=== PATIENT | female | born 1965 | race Caucasian/White ===

== ENCOUNTER 2020-02-12 23:06 | Observation (INO) | payer OTHER, SELFPAY ==
--- NOTE | ~2020-02-12 | XR_ITS ---
EXAMINATION: XR chest 2V DATE: 02/12/2020 23:56 INDICATION: Syncope TECHNIQUE: PA and lateral views of the chest were obtained. COMPARISON: Chest radiograph dated 05/27/2019 FINDINGS: The lungs remain clear with no focal airspace opacities, pulmonary edema, pleural effusion or pneumot horax. The cardiomediastinal silhouette is normal. Mild thoracic spondylosis. IMPRESSION: 1. No acute cardiopulmonary disease. Reviewed, dictated and finalized at location A.
--- NOTE | ~2020-02-12 | CT_ITS ---
EXAMINATION: CT BRAIN W/O DATE: 02/12/2020 23:57 INDICATION: Incomplete. TECHNIQUE: Computed tomography (CT) of the head was performed without intravenous contrast. The dose- length product was 605.33 mGy-cm. The mA was adjusted according to patient size. Iterative reconstruc tion technique was employed. COMPARISON: CT dated 05/27/2019 FINDINGS: Normal brain parenchymal volume for age. Normal reyes-white differentiation. No acute intrac ranial hemorrhage, infarction, mass or mass effect. There are scattered mild periventricular and subc ortical white matter changes, most likely related to small vessel ischemic disease (microangiopathy). No ventriculomegaly or midline shift. Midline sagittal images demonstrate a normal corpus callosum, c raniovertebral junction and sella turcica. Basilar cisterns are patent. Paranasal sinuses and mastoids are pneumatized. No depressed skull fractures. IMPRESSION: 1. No acute intracranial abnormality. Reviewed, dictated and finalized at location A.
--- NOTE | 2020-02-12 23:11 | ECG_ITS ---
Measurements Intervals [place] Rate: 95 P: 74 IN: 197 QRS: 83 QRSD: 99 T: 69 QT: 377 QTc: 475 Interpretive Statements SINUS RHYTHM BASELINE ARTIFACT- II, III, AVL, AVF NORMAL ECG Electronically Signed On 02-13-2020 7:17:50 CDT by Todd Ferguson D.O.
--- NOTE | 2020-02-12 23:13 | ED.SYNCOPE ---
HPI - Syncope General Chief Complaint: Syncope Stated Complaint: Syncope, Hypertension Time Seen by Provider: 02/12/20 23:13 Source: patient Mode of arrival: EMS Limitations: no limitations History of Present Illness HPI narrative: 54-year-old woman brought to the emergency department this evening After passing out at home. She states that she had a coughing spell prior to passing out. 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 Cough is nonproductive. Patient states that she had no premonitory symptoms such as lightheadedness, chest pain, nausea, shortness of breath, visual changes, or headache. She states the loss of consciousness was brief and unwitnessed. She denies any recent weakness, shortness of breath, calf pain, chest pain, weakness, lightheadedness or shortness of breath. She states she briefly felt lightheaded while going out to the ambulance. BS was 98 at the scene. She had 4 alcoholic drinks today. MD complaint: loss of consciousness Onset (ago): hour(s) (1) -: minutes(s) Prodromal symptoms: none Witnessed: No Injuries sustained associated with event: none Current symptoms: none History: history of CAD Treatments prior to arrival: none Related Data Home Medications Medication Instructions Recorded Confirmed hydrochlorothiazide 12.5 mg PO DAILY 02/12/20 02/12/20 irbesartan 75 mg PO DAILY 02/12/20 02/12/20 metoprolol succinate 25 mg PO DAILY 02/12/20 02/12/20 Allergies Allergy/AdvReac Type Severity Reaction Status Date / Time hydrocodone Allergy Severe Verified 12/20/08 13:01 Penicillins Allergy Severe Verified 12/20/08 13:01 CODEINE (Generic Allergy) Allergy Severe Y Uncoded 02/28/03 14:33 1. CODIENE 2.PCN 3. BITH Allergy Unknown Uncoded 02/28/03 13:42 CONTROLL PILLS NKFA Allergy Unknown Uncoded 02/28/03 13:42 CONTRCEPTIVES Allergy Uncoded 12/20/08 13:01 Review of Systems Constitutional: Constitutional: Denies chills, Denies fatigue, Denies fever(s) and Denies weakness Eyes: Eyes: Denies change in vision and Denies photophobia ENT: Denies dysphagia, Denies nasal congestion and Denies sore throat Cardiovascular: Cardiovascular: Denies chest pain and Denies radiating jaw, neck or arm pain Respiratory: Respiratory: Denies cough, Denies dyspnea and Denies wheezing Gastrointestinal: Gastrointestinal: Denies abdominal pain, Denies diarrhea, Denies nausea and Denies vomiting Genitourinary: Genitourinary: Denies nocturia, Denies dysuria and Denies urinary incontinence Musculoskeletal: Musculoskeletal: Denies back pain, Denies arthralgias and Denies joint swelling Integumentary/Breasts: Skin/Breast: Denies pruritus, Denies erythema and Denies rash Neurologic: Reports as per HPI, Denies confusion, Denies vertigo, Denies dizziness, Denies headache(s), Denies focal weakness, Denies numbness and Denies weakness Psychiatric: Psychiatric: Denies anxiety and Denies depression Endocrine: Endocrine: Denies polydipsia and Denies polyuria Hematologic/Lymphatic: Hematologic/Lymphatic: Denies easy bleeding and Denies easy bruising Allergic/Immunologic: Allergic/Immunologic: Denies lip swelling and Denies wheezing PMFSH Past Medical History Medical History History of [place] (myocardial infarction) History of TIA (transient ischemic attack) Hypertension Surgical History Surgical History H/O: hysterectomy History of Social History Social History Smoking status: Current every day smoker Alcohol intake: current Substance use: never Living arrangements: with family Exam Const: General: healthy appearing, no acute distress and alert Nutritional Appearance: thin Orientation/consciousness: patient oriented x3 Limitations: no limitations
[2020-02-12 23:15] VITALS: BP 174/107; PULSE 82; RESP 20; TEMP 36.4; O2SAT 97
[2020-02-12 23:50] VITALS: BP 141/91; PULSE 96
[2020-02-12 23:50] LABS: Basophils Absolute Auto 0.07 K/mm3 (0.00-0.10); Basophils Percent Auto 0.7 % (0.0-1.0); Eosinophils Absolute Auto 0.17 K/mm3 (0.02-0.50); Eosinophils Percent Auto 1.7 % (1.0-6.0); Hematocrit 47.3 % (35.0-49.0); Hemoglobin 16.5 g/dL (12.0-15.0); Immature Granulocyte Absolute 0.02 K/mm3 (0.00-0.00); Immature Granulocyte Percent A 0.2 % (0.0-0.0); Lymphocytes Absolute Auto 2.47 K/mm3 (1.10-4.50); Lymphocytes Percent Auto 24.3 % (18.0-42.0); Mean Corpuscular HGB Conc 34.9 g/dL (32.0-36.0); Mean Corpuscular Hemoglobin 33.3 pg (27.0-31.0); Mean Corpuscular Volume 95.4 fL (78.0-102.0); Mean Platelet Volume 9.6 fl (9.2-11.8); Monocytes Absolute Auto 0.86 K/mm3 (0.10-0.90); Monocytes Percent Auto 8.5 % (2.0-11.0); Neutrophils Absolute Auto 6.6 K/mm3 (1.7-7.2); Neutrophils Percent Auto 64.6 % (50.0-70.0); Platelet Count Result 230 K/mm3 (150-420); Red Blood Count 4.96 M/mm3 (4.20-5.40); Red Cell Distribution Width 12.8 % (11.6-14.4); White Blood Count 10.2 K/mm3 (4.8-10.8)
[2020-02-12 23:52] VITALS: BP 127/88; PULSE 99
[2020-02-12 23:53] VITALS: PULSE 100
[2020-02-12 23:59] LABS: Partial Thromboplastin Time 25.3 SEC (22.3-31.6); Prothrombin Time 10.2 Seconds (9.64-11.0)
[2020-02-13] VITALS (7 sets, daily range): BP systolic 130–162; BP diastolic 62–93; PULSE 89–95; RESP 18; TEMP 36.2–36.6; O2SAT 97–99; BMI 17.5
[2020-02-13 00:01] LABS: D Dimer 0.31 mg/L (0.19-0.50)
[2020-02-13 00:05] LABS: Alanine Aminotransferase 25 U/L (14-59); Alkaline Phosphatase 112 U/L (46-116); Anion Gap 15.3 mmol/L (7-16); Aspartate Amino Transferase 22 U/L (15-37); Bilirubin,Total 0.2 mg/dL (0.00-1.00); Blood Urea Nitrogen 11 mg/dL (7-18); Calcium 9.2 mg/dL (8.5-10.1); Carbon Dioxide 28 mmol/L (21-32); Chloride 99 mmol/L (98-108); Estimated CRCL calculation 69 ml/min; Estimated Glomerular Filt Rate > 60; Glucose 113 mg/dL (70-99); Osmolality Calculated 288 mOsm/kg (285-295); Potassium 3.3 mmol/L (3.5-5.1); Sodium 139 mmol/L (136-145); Total Protein 8.5 g/dL (6.4-8.2); Troponin I < 0.02 ng/mL (0.00-0.056)
[2020-02-13 00:16] LABS: Add Urine Microscopic? YES; Appearance Urine Clear (Clear); Bilirubin Urine Negative (Negative); Blood Urine 2+ (Negative); Glucose Urine UA Negative (Negative); Ketones Urine Negative (Negative); Leukocyte Esterase Ur Negative (Negative); Nitrate Urine Negative (Negative); Protein Urine Negative (Negative); Specific Grav Ur <= 1.005 (1.010-1.020); Urobilinogen Urine 0.2 mg/dL (0.2-1.0)
[2020-02-13 00:20] LABS: Color Urine Colorless (Yellow); RBC Urine 0-2 /hpf (0-2); WBC Urine None seen /hpf (0-3)
[2020-02-13 00:21] LABS: Bacteria Urine None seen /hpf; Mucus Urine None seen /lpf; Squamous Epithelial Cell Urine None seen /hpf (Few)
[2020-02-13] MEDS: ASPIRIN 81 MG CHEWABLE TABLET 324 MG PO (00:50)
--- NOTE | 2020-02-13 01:10 | ADMGEN ---
This patient, Jewels Langley, was admitted to 2nd Floor Room 202-2. Patient oriented to hospital policies and general routines including ID bracelet, bed and alarms, visiting hours, pain management, procedures, bathroom and other care routines, personal items, smoking policy, room service/diet, and visiting hours. Valuables list includes cell phone with senior teradata developer, wallet with approx $150 in it along with a debit card, clothing and slippers. Information on how to activate the Rapid Response Team has been discussed. Patient are encouraged to report perceived risks to care and to ask questions if they do not understand what they are told or what they should do.
--- NOTE | 2020-02-13 02:05 | PC.NURSE ---
Patient appears to be sleeping by the rise and fall of her chest. Respirations even and unlabored. No distress noted. No signs of chest pain noted. Telemetry showing sinus rhythm. Call light in reach.
--- NOTE | 2020-02-13 04:05 | PC.NURSE ---
Patient awakened easily for VS. Respirations even and unlabored. Patient denies SOB/chest pain/other pain/complaints/needs @ this time. Telemetry continues to show sinus rhythm. Call light in reach.
--- NOTE | 2020-02-13 06:00 | PC.NURSE ---
Patient awakened slightly when nurse emptied trash and refilled water. Patient denies SOB/chest pain/other pain/complaints/needs @ this time. Denies dizziness/lightheadedness/unsteadiness when up to use bathroom. Telemetry continues showing sinus rhythm. Patient says she slept off and on. Call light in reach.
[2020-02-13 06:23] LABS: Basophils Absolute Auto 0.06 K/mm3 (0.00-0.10); Basophils Percent Auto 0.7 % (0.0-1.0); Eosinophils Absolute Auto 0.25 K/mm3 (0.02-0.50); Eosinophils Percent Auto 3.1 % (1.0-6.0); Hematocrit 44.7 % (35.0-49.0); Hemoglobin 15.4 g/dL (12.0-15.0); Immature Granulocyte Absolute 0.02 K/mm3 (0.00-0.00); Immature Granulocyte Percent A 0.2 % (0.0-0.0); Lymphocytes Absolute Auto 3.18 K/mm3 (1.10-4.50); Lymphocytes Percent Auto 39.1 % (18.0-42.0); Mean Corpuscular HGB Conc 34.5 g/dL (32.0-36.0); Mean Corpuscular Hemoglobin 32.8 pg (27.0-31.0); Mean Corpuscular Volume 95.1 fL (78.0-102.0); Mean Platelet Volume 9.7 fl (9.2-11.8); Monocytes Absolute Auto 0.71 K/mm3 (0.10-0.90); Monocytes Percent Auto 8.7 % (2.0-11.0); Neutrophils Absolute Auto 3.9 K/mm3 (1.7-7.2); Neutrophils Percent Auto 48.2 % (50.0-70.0); Platelet Count Result 217 K/mm3 (150-420); Red Cell Distribution Width 12.7 % (11.6-14.4); White Blood Count 8.1 K/mm3 (4.8-10.8)
[2020-02-13 06:43] LABS: Alanine Aminotransferase 22 U/L (14-59); Albumin Level 3.4 g/dL (3.4-5.0); Alkaline Phosphatase 103 U/L (46-116); Anion Gap 12.5 mmol/L (7-16); Aspartate Amino Transferase 19 U/L (15-37); Bilirubin,Total 0.3 mg/dL (0.00-1.00); Blood Urea Nitrogen 11 mg/dL (7-18); Calcium 8.8 mg/dL (8.5-10.1); Carbon Dioxide 30 mmol/L (21-32); Chloride 101 mmol/L (98-108); Estimated CRCL calculation 66 ml/min; Estimated Glomerular Filt Rate > 60; Glucose 100 mg/dL (70-99); Osmolality Calculated 289 mOsm/kg (285-295); Potassium 3.5 mmol/L (3.5-5.1); Sodium 140 mmol/L (136-145); Total Protein 7.2 g/dL (6.4-8.2)
[2020-02-13 06:46] LABS: Troponin I < 0.02 ng/mL (0.00-0.056)
--- NOTE | 2020-02-13 07:00 | PC.NURSE ---
Patient denies chest pain, pressure, dizziness.
--- NOTE | 2020-02-13 08:00 | PC.NURSE ---
Patient denies chest pain, pressure, dizziness.
[2020-02-13] MEDS: IRBESARTAN 150 MG TABLET 75 MG PO (08:11)
[2020-02-13] MEDS: hydroCHLOROthiazide 12.5 MG CAPSULE PO (08:11)
[2020-02-13] MEDS: METOPROLOL SUCCINATE EXT REL 25 MG TABCR PO (08:11)
--- NOTE | 2020-02-13 08:12 | PM.SD ---
Same Day Admit/Disch: HPI History of Present Illness Chief complaint: Syncope, Hypertension Narrative: Myra is a 54-year-old female that presented to the ED post syncopal episode, unwitnessed. She has a past medical history [place], TIA, hypertension. according to the patient she was at home cleaning and had coughing episode which she believes caused her to blackout. She later woke up on the floor, she is unsure of how long she was there. She does deny hitting her head, she apparently landed on carpet but she did hit her left foot, which has a discolorated bruise. When she woke up from the syncopal episode she noted that she informed her and son and EMS was called and she was transported here to our ED department. 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 before she had her syncope episode she did deny any lightheadedness, dizziness, shortness of breath, chest pain, numbness, or visual changes. vital signs are 144/62, 94, 18, 97.7, 97% on room air. patient labs are all within normal limits. while in ED as CT of the head was completed with a chest x-ray which were unremarkable, troponin negative x2 EKG sinus rhythm and D-dimer within normal limits. she is being admitted today for syncope episode possibly caused by vasovagal. [facility] Past Medical History Medical History History of [place] (myocardial infarction) History of TIA (transient ischemic attack) Hypertension Surgical History Surgical History H/O: hysterectomy History of Family History Family History (Updated 02/13/20 @ 02:07 by Marichuy Nolasco RN) Mother Lung cancer, primary, with metastasis from lung to other site Father Breast cancer metastasized to brain Sibling DM2 (diabetes mellitus, type 2) Social History Social History Smoking packs per day: 1 Smoking cigarettes per day: 20.0 Years smoked: 39 Smoking pack-years: 39.00 Smoking status: Current every day smoker Tobacco type: cigarettes Second hand tobacco smoke exposure: Yes Alcohol intake: current Drinks per week: 2 Substance use: never Living arrangements: with family Gender identity (if verbalized by the patient): Female Spiritual care concerns: No Same Day Admit/Disch: Med Pre-admit Medications Home Medications Medication Instructions Recorded Confirmed Type hydrochlorothiazide 12.5 mg PO DAILY #30 tablet 02/13/20 02/12/20 Rx irbesartan 75 mg PO DAILY #30 tablet 02/13/20 02/12/20 Rx metoprolol succinate 25 mg PO DAILY #30 tablet 02/13/20 02/12/20 Rx Exam Narrative: Exam Narrative: General: A well-developed, well-nourished male sitting up in bed no acute distress. HEENT: Normocephalic, atraumatic. PERRL, EOMI. Sclerae anicteric. Oral mucosa moist. Oropharynx clear. Neck: Supple. Respiratory: Lungs are clear to auscultation bilaterally. Cardiovascular: Regular rate and rhythm with S1-S2. Gastrointestinal: Abdomen is soft, nontender, and nondistended with positive bowel sounds. No organomegaly. Skin: Warm, dry, and slightly pale.. No rash or lesions on limited exam. Left foot discoloration bruise Extremities: No cyanosis, clubbing, or edema. Radial and pedal pulses intact. Neurological: Alert. Cranial nerves 2-12 are grossly intact. No gross focal deficits to casual conversation. Psychiatric: Pleasant and cooperative with normal mood and affect. Judgment and insight intact. DS: Summary Hospital Course Reason for hospitalization: syncope episode Time Spent with Patient Time attestation: Total time spent providing and/or coordinating discharge services: DS: Admitting Diagnosis Admitting Diagnosis Admitting Diagnosis: Syncope and collapse DS: Discharge Diagnosis Discharge
--- NOTE | 2020-02-13 09:00 | PC.NURSE ---
Patient denies chest pain, pressure, dizziness
--- NOTE | 2020-02-13 10:00 | PC.NURSE ---
Patient denies chest pain, pressure, dizziness
--- NOTE | 2020-02-13 10:34 | P.DS_ITS ---
DS: Discharge Diagnosis Discharge Diagnosis (1) Syncope: Qualifiers: Syncope type: unspecified Qualified Code(s): R55 - Syncope and collapse <Patriciouna RylieWILFREDO Olvera - Last Filed: 02/13/20 11:01> Code(s): R55 - Syncope and collapse <Narendra YoungbloodWILFREDO Olvera - Last Filed: 02/13/20 11:01> Status: Acute <Narendra RylieWILFREDO Olvera - Last Filed: 02/13/20 11:01> Assessment and Plan: * not believed to be cardiac related * possibly secondary to vasovagal due to uncontrolled cough * head CT and chest x-ray unremarkable * troponin negative x2 * D-dimer within normal limits * EKG sinus rhythm * patient placed on telemetry while here * orthostatics completed, no abnormal findings <Patriciouna RylieWILFREDO Olvera - Last Filed: 02/13/20 11:01> (2) Hypertension: Code(s): I10 - Essential (primary) hypertension <WILFREDO Back - Last Filed: 02/13/20 11:01> Status: Acute <Narendra RylieWILFREDO Olvera - Last Filed: 02/13/20 11:01> Assessment and Plan: * blood pressure slightly elevated * patient admits she had not been taking blood pressure medication at home , she needs a refill, will refill her medication * continue home medication <WILFREDO Back - Last Filed: 02/13/20 11:01> (3) Hypokalemia: Code(s): E87.6 - Hypokalemia <WILFREDO Back - Last Filed: 02/13/20 11:01> Status: Acute <WILFREDO Back - Last Filed: 02/13/20 11:01> Assessment and Plan: * on admission 3.3 currently 3.5 * supplements given <WILFREDO Back - Last Filed: 02/13/20 11:01> (4) History of [place] (myocardial infarction): Code(s): I25.2 - Old myocardial infarction <WILFREDO Back - Last Filed: 02/13/20 11:01> Status: Acute <Narendra Wang MANAGER MEATPatricia - Last Filed: 02/13/20 11:01> Assessment and Plan: not believed to be cardiac related * possibly secondary to vasovagal due to uncontrolled cough * head CT and chest x-ray unremarkable * troponin negative x2 * D-dimer within normal limits * EKG sinus rhythm * patient placed on telemetry while here * orthostatics completed, no abnormal findings <Narendra YoungbloodChente STEVAN WangPaulineManjeet - Last Filed: 02/13/20 11:01> DS: Summary Hospital Course Reason for hospitalization: syncope episode <Narendra Staci Wang WILFREDO - Last Filed: 02/13/20 11:01> Hospital Course: Myra is a 54-year-old female that presented to the ED post syncopal episode, unwitnessed. She has a past medical history [place], TIA, hypertension. according to the patient she was at home cleaning and had coughing episode which she believes caused her to blackout. She later woke up on the floor, she is unsure of how long she was there. She does deny hitting her head, she apparently landed on carpet but she did hit her left foot, which has a disc olorated bruise. When she woke up from the syncopal episode she noted that she informed her and son and EMS was called and she was transported here to our ED department. 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 before she had her syncope episode she did deny any lightheadedness, dizziness, shortness of breath, chest pain, numbness, or visual changes. vital signs are 144/62, 94, 18, 97.7, 97% on room air. patient labs are all within normal limits. while in ED as CT of the head was completed with a chest x-ray which were unremarkable, troponin negative x2 EKG sinus rhythm and D-dimer within normal limits. she is being admi
--- NOTE | 2020-02-13 10:34 | PM.DS ---
DS: Discharge Diagnosis Discharge Diagnosis (1) Syncope: Qualifiers: Syncope type: unspecified Qualified Code(s): R55 - Syncope and collapse <WILFREDO Back - Last Filed: 02/13/20 11:01> Code(s): R55 - Syncope and collapse <WILFREDO Back - Last Filed: 02/13/20 11:01> Status: Acute <WILFREDO Back - Last Filed: 02/13/20 11:01> Assessment and Plan: not believed to be cardiac related possibly secondary to vasovagal due to uncontrolled cough head CT and chest x-ray unremarkable troponin negative x2 D-dimer within normal limits EKG sinus rhythm patient placed on telemetry while here orthostatics completed, no abnormal findings <WILFREDO Back - Last Filed: 02/13/20 11:01> (2) Hypertension: Code(s): I10 - Essential (primary) hypertension <WILFREDO Back - Last Filed: 02/13/20 11:01> Status: Acute <WILFREDO Back - Last Filed: 02/13/20 11:01> Assessment and Plan: blood pressure slightly elevated patient admits she had not been taking blood pressure medication at home , she needs a refill, will refill her medication continue home medication <WILFREDO Back - Last Filed: 02/13/20 11:01> (3) Hypokalemia: Code(s): E87.6 - Hypokalemia <WILFREDO Back - Last Filed: 02/13/20 11:01> Status: Acute <WILFREDO Back - Last Filed: 02/13/20 11:01> Assessment and Plan: on admission 3.3 currently 3.5 supplements given <WILFREDO Back - Last Filed: 02/13/20 11:01> (4) History of [place] (myocardial infarction): Code(s): I25.2 - Old myocardial infarction <WILFREDO Back - Last Filed: 02/13/20 11:01> Status: Acute <WILFREDO Back - Last Filed: 02/13/20 11:01> Assessment and Plan: not believed to be cardiac related possibly secondary to vasovagal due to uncontrolled cough head CT and chest x-ray unremarkable troponin negative x2 D-dimer within normal limits EKG sinus rhythm patient placed on telemetry while here orthostatics completed, no abnormal findings <WILFREDO Back - Last Filed: 02/13/20 11:01> DS: Summary Hospital Course Reason for hospitalization: syncope episode <WILFREDO Back - Last Filed: 02/13/20 11:01> Hospital Course: Myra is a 54-year-old female that presented to the ED post syncopal episode, unwitnessed. She has a past medical history [place], TIA, hypertension. according to the patient she was at home cleaning and had coughing episode which she believes caused her to blackout. She later woke up on the floor, she is unsure of how long she was there. She does deny hitting her head, she apparently landed on carpet but she did hit her left foot, which has a discolorated bruise. When she woke up from the syncopal episode she noted that she informed her and son and EMS was called and she was transported here to our ED department. 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 before she had her syncope episode she did deny any lightheadedness, dizziness, shortness of breath, chest pain, numbness, or visual changes. vital signs are 144/62, 94, 18, 97.7, 97% on room air. patient labs are all within normal limits. while in ED as CT of the head was completed with a chest x-ray which were unremarkable, troponin negative x2 EKG sinus rhythm and D-dimer within normal limits. she is being admitted today for syncope episode possibly caused by vasovagal. <WILFREDO Back - Last Filed: 02/13/20 11:01> Time Spent with Patient Time attestation: Total time spent providing and/or coordinating discharge services:60 <WILFREDO Back - Last Filed: 06/08/20 11:01> Exam Narrative: Exam Narrat
--- NOTE | 2020-02-13 11:00 | PC.NURSE ---
Patient denies chest pain, pressure, dizziness.
== END 2020-02-13 11:20 | disposition home or self-care (01) ==
LOC: CHSED 02-13 00:28 → CHS2ND 02-13 00:55
PROVIDERS: Admitting Provider Emergency Medicine; Emergency Provider Emergency Medicine; PCP Family Medicine; Visit Provider Emergency Medicine
DX: R55 Syncope and collapse (principal); R05 Cough; I10 Essential (primary) hypertension; I25.2 Old myocardial infarction; Z86.73 Personal history of transient ischemic attack (TIA), and cerebral infarction without residual deficits
CPT/HCPCS: 36415; 70450; 71046; 80053; 81001; 84484; 85025; 85380; 85610; 85730; 93005; 99285; A9270; G0378; G0379

== ENCOUNTER 2020-03-29 13:24 | Emergency (ER) | payer OTHER, SELFPAY ==
[2020-03-29 13:26] VITALS: BP 168/96; PULSE 97; RESP 20; TEMP 37.1; O2SAT 98
--- NOTE | 2020-03-29 13:47 | ECG_ITS ---
Measurements Intervals [place] Rate: 99 P: 52 DC: 196 QRS: 73 QRSD: 97 T: 53 QT: 362 QTc: 466 Interpretive Statements SINUS RHYTHM VENTRICULAR PREMATURE COMPLEX BASELINE ARTIFACT- II, III, AVL, AVF BORDERLINE ECG Electronically Signed On 03-29-2020 16:20:24 CDT by Todd Ferguson D.O.
[2020-03-29 14:20] LABS: Alanine Aminotransferase 33 U/L (14-59); Alkaline Phosphatase 126 U/L (46-116); Anion Gap 9.2 mmol/L (7-16); Aspartate Amino Transferase 23 U/L (15-37); Bilirubin,Total 0.4 mg/dL (0.00-1.00); Blood Urea Nitrogen 10 mg/dL (7-18); Calcium 9.5 mg/dL (8.5-10.1); Carbon Dioxide 33 mmol/L (21-32); Chloride 97 mmol/L (98-108); Estimated CRCL calculation 64 ml/min; Estimated Glomerular Filt Rate > 60; Glucose 109 mg/dL (70-99); Osmolality Calculated 282 mOsm/kg (285-295); Potassium 3.2 mmol/L (3.5-5.1); Sodium 136 mmol/L (136-145); Total Protein 8.5 g/dL (6.4-8.2)
[2020-03-29 14:23] LABS: Troponin I < 0.02 ng/mL (0.00-0.056)
--- NOTE | 2020-03-29 14:32 | ED.HA ---
HPI - Headache General Chief Complaint: Headache Stated Complaint: Ambulance Source: patient and EMS Mode of arrival: EMS Limitations: no limitations History of Present Illness HPI Narrative: this is a 55-year-old female that presents via EMS after her daughter called EMS because of the elevated blood pressure, initially or brought blood pressure systolic was 174 EMS gave her a dose of nitroglycerin which I have decreased her blood pressure down to systolic 140. The patient had a headache, and some typical migraine type headache with some throbbing one-sided on the right side with light sensitivity with no nausea vomiting no chest pain no shortness of breath. The patient has been on and anti hypertensive medication, irbesartan, metoprolol and hydrochlorothiazide. The patient had ran out of her irbesartan, with an elevated blood pressure that her daughter had taken they were concerned called EMS and they brought her to the emergency department for further evaluation. Patient is stable resting comfortably no chest pain no shortness of breath. MD elicited complaint: headache and migraine Onset (ago): hour(s) Onset description: gradually Location: frontal Quality & Timing: throbbing Exacerbating factors: none Relieving factors: nothing Context: occurred at rest Associated symptoms: none Related Data Home Medications Medication Instructions Recorded Confirmed irbesartan-hydrochlorothiazide 1 tablet PO DAILY 03/29/20 03/29/20 Allergies Allergy/AdvReac Type Severity Reaction Status Date / Time hydrocodone Allergy Severe Unknown Verified 03/29/20 13:48 Penicillins Allergy Severe Nausea and Verified 03/29/20 13:48 Vomiting CODEINE (Generic Allergy) Allergy Severe Y Uncoded 03/29/20 13:50 1. CODIENE 2.PCN 3. BITH Allergy Unknown Nausea and Uncoded 03/29/20 13:50 CONTROLL PILLS Vomiting NKFA Allergy Unknown Unknown Uncoded 03/29/20 13:50 CONTRCEPTIVES Allergy Hives Uncoded 03/29/20 13:50 Review of Systems Review of Systems: All systems reviewed & are unremarkable except as noted in HPI and below PMFSH Past Medical History Medical History History of [place] (myocardial infarction) History of TIA (transient ischemic attack) Hypertension Surgical History Surgical History H/O: hysterectomy History of Family History Family History Mother Lung cancer, primary, with metastasis from lung to other site Father Breast cancer metastasized to brain Sibling DM2 (diabetes mellitus, type 2) Social History Social History Smoking packs per day: 1 Smoking cigarettes per day: 20.0 Years smoked: 39 Smoking pack-years: 39.00 Smoking status: Current every day smoker Tobacco type: cigarettes Second hand tobacco smoke exposure: Yes Alcohol intake: current Drinks per week: 2 Substance use: never Gender identity (if verbalized by the patient): Female Spiritual care concerns: No Exam Const: General: no acute distress and alert Orientation/consciousness: patient oriented x3 HENMT: Head: normal to inspection Eyes: Conjunctivae: conjunctivae normal Pupils: Equal, round and reactive pupils present EOM: EOMs intact bilaterally Neck: Neck: normal visual inspection, no lymphadenopathy and no meningeal signs Chest: Chest palpation & inspection: normal inspection of the chest Resp: Effort & Inspection: normal respiratory effort Auscultation: clear to auscultation bilaterally Cardio: Rate: regular rate Rhythm: regular rhythm GI: GI Palp: Yes Soft to palpation : General: Yes no CVA tenderness Skin: General skin exam: normal color Rashes: no rashes Neuro: General: patient oriented x3, moves all extremities, no meningeal signs and no focal motor deficits Extrem:
[2020-03-29] MEDS: POTASSIUM CHLORIDE 20 MEQ TABLET 40 MEQ PO (14:45)
[2020-03-29 15:06] VITALS: BP 136/82; PULSE 99; RESP 20; O2SAT 100
== END 2020-03-29 15:08 | disposition home or self-care (01) ==
PROVIDERS: Emergency Provider Emergency Medicine; PCP Family Medicine
DX: E87.6 Hypokalemia (principal); I10 Essential (primary) hypertension
CPT/HCPCS: 36415; 80053; 84484; 93005; 99284; A9270

== ENCOUNTER 2021-03-19 13:34 | Emergency (ER) | payer OTHER, SELFPAY ==
--- NOTE | ~2021-03-19 | XR_ITS ---
EXAMINATION: XR chest 2V DATE: 03/19/2021 14:37 INDICATION: Syncope. TECHNIQUE: Frontal and lateral views of the chest were obtained. COMPARISON: Chest 2 views 02/12/2020 FINDINGS: There is mild scarring at the lung apices. No pleural effusion or pneumothorax. The heart s ize is normal. IMPRESSION: 1. Stable mild scarring at the lung apices. Reviewed, dictated and finalized at location A.
--- NOTE | 2021-03-19 13:39 | ECG_ITS ---
Measurements Intervals [place] Rate: 105 P: 53 NE: 144 QRS: 75 QRSD: 94 T: 68 QT: 339 QTc: 450 Interpretive Statements SINUS TACHYCARDIA ABNORMAL ECG Electronically Signed On 03-19-2021 14:24:58 CDT by Todd Ferguson D.O.
--- NOTE | 2021-03-19 14:02 | ED.AMS ---
HPI - Altered Mental Status General Chief Complaint: Unspecified Stated Complaint: AMBULANCE Time Seen by Provider: 03/19/21 14:04 Source: patient Mode of arrival: EMS Limitations: no limitations History of Present Illness HPI narrative: 56-year-old woman with a history of hypertension, syncopal spells, migraines, and coronary artery disease brought to the emergency department by EMS after a complaint of blood pressure elevation. On arrival EMS was told by the family that she has been having episodes of confusion and near-syncope. Last night she seemed to space out while her was talking to her. She was resting at the time because she was having a headache. Her headache has since resolved. Today she was walking around the house and she had two brief episodes of lightheadedness that got better with resting. Her symptoms resolved completely in both instances. She denies recent illness, nausea, vomiting, chest pain, shortness of breath , change in intake, change in medications, cough or cold symptoms, head injury, or abdominal pain. on arrival the patient states that she thinks both she and her family is over reacting and that she has no complaints at present. MD complaint: altered mental status Onset (ago): day(s) Timing confirmed by: family member Severity: moderate Consistency of symptoms: waxing and waning Associated symptoms: denies other symptoms Related Data Home Medications Medication Instructions Recorded Confirmed irbesartan-hydrochlorothiazide 1 tablet PO DAILY 03/29/20 03/19/21 metoprolol succinate 50 mg PO DAILY 03/19/21 03/19/21 pravastatin 20 mg PO DAILY 03/19/21 03/19/21 Allergies Allergy/AdvReac Type Severity Reaction Status Date / Time hydrocodone Allergy Severe Unknown Verified 03/19/21 14:24 Penicillins Allergy Severe Nausea and Verified 03/19/21 14:24 Vomiting CODEINE (Generic Allergy) Allergy Severe Y Uncoded 03/19/21 14:24 1. CODIENE 2.PCN 3. BITH Allergy Unknown Nausea and Uncoded 03/19/21 14:24 CONTROLL PILLS Vomiting NKFA Allergy Unknown Unknown Uncoded 03/19/21 14:24 CONTRCEPTIVES Allergy Hives Uncoded 03/19/21 14:24 Review of Systems Review of Systems: All systems reviewed & are unremarkable except as noted in HPI and below Constitutional: Constitutional: Denies chills and Denies fever(s) Eyes: Eyes: Denies change in vision and Denies photophobia ENT: Denies nasal congestion and Denies sore throat Cardiovascular: Cardiovascular: Denies chest pain and Denies radiating jaw, neck or arm pain Respiratory: Respiratory: Denies cough and Denies dyspnea Gastrointestinal: Gastrointestinal: Denies abdominal pain, Denies diarrhea, Denies nausea and Denies vomiting Comments: Denies Black or bloody stools. Genitourinary: Genitourinary: Denies hematuria, Denies nocturia and Denies dysuria Musculoskeletal: Musculoskeletal: Denies arthralgias and Denies joint swelling Integumentary/Breasts: Skin/Breast: Denies pruritus, Denies erythema and Denies rash Neurologic: Denies vertigo, Reports dizziness, Reports syncope, Reports headache(s) and Denies weakness Hematologic/Lymphatic: Hematologic/Lymphatic: Denies easy bleeding and Denies easy bruising Allergic/Immunologic: Allergic/Immunologic: Denies lip swelling and Denies throat swelling PMFSH Past Medical History Medical History (Updated 03/19/21 @ 16:36 by Jerrod Lima MD) History of [place] (myocardial infarction) History of TIA (transient ischemic attack) Hypertension Surgical History Surgical History H/O: hysterectomy History of Family History Family History Mother Lung cancer, primary, with metastasis from lung to other site Father Breast cancer metastasized to brain Sibling DM2 (diabetes mellitus, type 2) Social History Social History (Reviewed 03/19/21 @ 15:11 by Jerrod Lima,
[2021-03-19 14:14] VITALS: BP 160/104; PULSE 111; RESP 20; TEMP 36.7; O2SAT 99
[2021-03-19 14:19] LABS: Basophils Absolute Auto 0.07 K/mm3 (0.00-0.10); Basophils Percent Auto 0.5 % (0.0-1.0); Eosinophils Absolute Auto 0.03 K/mm3 (0.02-0.50); Eosinophils Percent Auto 0.2 % (1.0-6.0); Hematocrit 40.3 % (35.0-49.0); Immature Granulocyte Absolute 0.09 K/mm3 (0.00-0.00); Immature Granulocyte Percent A 0.6 % (0.0-0.0); Lymphocytes Percent Auto 10.5 % (18.0-42.0); Mean Corpuscular HGB Conc 34.7 g/dL (32.0-36.0); Mean Corpuscular Hemoglobin 32.7 pg (27.0-31.0); Mean Corpuscular Volume 94.2 fL (78.0-102.0); Monocytes Absolute Auto 0.79 K/mm3 (0.10-0.90); Monocytes Percent Auto 5.5 % (2.0-11.0); Neutrophils Absolute Auto 11.8 K/mm3 (1.7-7.2); Neutrophils Percent Auto 82.7 % (50.0-70.0); Platelet Count Result 302 K/mm3 (150-420); Red Blood Count 4.28 M/mm3 (4.20-5.40); Red Cell Distribution Width 12.1 % (11.6-14.4); White Blood Count 14.3 K/mm3 (4.8-10.8)
[2021-03-19 14:29] VITALS: BP 139/101; BP 150/92; PULSE 110; PULSE 113
[2021-03-19 14:30] LABS: D Dimer 0.19 mg/L (0.19-0.50)
[2021-03-19 14:34] LABS: Alanine Aminotransferase 35 U/L (14-59); Albumin Level 4.1 g/dL (3.4-5.0); Alkaline Phosphatase 98 U/L (46-116); Anion Gap 12 mmol/L (8-16); Aspartate Amino Transferase 22 U/L (15-37); Bilirubin,Total 0.4 mg/dL (0.00-1.00); Blood Urea Nitrogen 20 mg/dL (7-18); Calcium 9.7 mg/dL (8.5-10.1); Carbon Dioxide 28 mmol/L (21-32); Chloride 96 mmol/L (98-108); Estimated CRCL calculation 65 ml/min; Estimated Glomerular Filt Rate > 60; Glucose 112 mg/dL (70-99); Magnesium 1.8 mg/dL (1.8-2.4); Osmolality Calculated 285 mOsm/kg (285-295); Potassium 3.9 mmol/L (3.5-5.1); Sodium 136 mmol/L (136-145); Total Protein 8.1 g/dL (6.4-8.2); Troponin I < 4.0 ng/L (0.00-60.4)
[2021-03-19 15:28] LABS: Add Urine Microscopic? YES; Appearance Urine Clear (Clear); Bilirubin Urine Negative (Negative); Blood Urine 3+ (Negative); Color Urine Light Yellow (Yellow); Glucose Urine UA Negative (Negative); Ketones Urine Negative (Negative); Leukocyte Esterase Ur Negative LEU/UL (Negative); Nitrate Urine Negative (Negative); Protein Urine 1+ (Negative); Specific Grav Ur >= 1.030 (1.010-1.020); Urobilinogen Urine 0.2 mg/dL (0.2-1.0)
[2021-03-19 15:32] LABS: WBC Urine None seen /hpf (0-3)
[2021-03-19 15:33] LABS: Bacteria Urine Trace /hpf; Squamous Epithelial Cell Urine Rare /hpf (Few)
[2021-03-19 16:31] LABS: Thyroid Stimulating Hormone Reflex 0.75 u/IU/mL (0.36-3.74)
[2021-03-19 17:06] VITALS: BP 120/83; PULSE 104; RESP 20; O2SAT 100
== END 2021-03-19 17:19 | disposition home or self-care (01) ==
PROVIDERS: Emergency Provider Emergency Medicine; PCP Family Medicine
DX: R40.4 Transient alteration of awareness (principal); R55 Syncope and collapse
CPT/HCPCS: 36415; 71046; 80053; 81001; 83735; 84443; 84484; 85025; 85380; 93005; 99283; 99284

== ENCOUNTER 2021-08-24 08:52 | Emergency (ER) | payer OTHER, SELFPAY ==
--- NOTE | ~2021-08-24 | CT_ITS ---
EXAMINATION: CT brain wo con DATE: 08/24/2021 09:40 INDICATION: Seizure. TECHNIQUE: Computed tomography (CT) of the head was performed without intravenous contrast. The mA wa s adjusted according to patient size. Iterative reconstruction technique was employed. The dose-lengt h product was 605.33 mGy-cm. COMPARISON: Head CT 02/12/2020, brain MRI 06/03/2017 FINDINGS: There is no intracranial hemorrhage, acute infarction, or abnormal intracranial mass lesion . There are scattered areas of low attenuation in the cerebral white matter. The ventricles are alaina l in size. The orbits are normal. There is mild mucosal thickening in the paranasal sinuses. The mast oid air cells are normal. IMPRESSION: 1. Stable mild nonspecific cerebral white matter disease, which likely represents chronic small vesse l ischemic disease. Reviewed, dictated and finalized at location A. GRINDER IMPRESSION: 1. Stable mild nonspecific cerebral white matter disease, which likely represen ts chronic small vessel ischemic disease.
--- NOTE | 2021-08-24 09:00 | ED.SEIZURE ---
HPI - Seizure General Chief Complaint: Seizure Stated Complaint: ambulance Time Seen by Provider: 08/24/21 09:00 Source: EMS Mode of arrival: EMS Limitations: no limitations History of Present Illness HPI Narrative: 56-year-old female, smoker with a history hypertension migraine syncopal spells, coronary artery disease with an [place] 6 years ago with a cardiac catheterization 1 year ago with no interventions, dyslipidemia was brought in by EMS. Her felt that she had a seizure. The patient had a prior history of seizures many years ago and had an EEG but subsequently she was not started on any medication. She complains of -- generalized headache -- no focal neuro deficit -- no tongue bite /oral injury. No incontinence we called the he stated that during sleep his made a grunting sound and subsequently noted his to be having generalized twitching and foaming at the mouth. He was unable to give us the duration of the seizure. MD complaint: possible seizure Duration of episode: 0 Possible Precipitating Event: none ( The patient was asleep during the seizure) Associated symptoms: denies other symptoms Treatments prior to arrival: none Related Data Home Medications Medication Instructions Recorded Confirmed irbesartan-hydrochlorothiazide 1 tablet PO DAILY 03/29/20 08/24/21 metoprolol succinate 50 mg PO DAILY 03/19/21 08/24/21 pravastatin 20 mg PO DAILY 03/19/21 03/19/21 Allergies Allergy/AdvReac Type Severity Reaction Status Date / Time hydrocodone Allergy Severe Unknown Verified 08/24/21 09:01 Penicillins Allergy Severe Nausea and Verified 08/24/21 09:01 Vomiting CODEINE (Generic Allergy) Allergy Severe Y Uncoded 03/19/21 14:24 1. CODIENE 2.PCN 3. BITH Allergy Unknown Nausea and Uncoded 03/19/21 14:24 CONTROLL PILLS Vomiting NKFA Allergy Unknown Unknown Uncoded 03/19/21 14:24 CONTRCEPTIVES Allergy Hives Uncoded 03/19/21 14:24 Review of Systems Review of Systems: All systems reviewed & are unremarkable except as noted in HPI and below Constitutional: Constitutional: Reports as per HPI, Reports no additional constitutional complaints and Reports headache(s) Cardiovascular: Cardiovascular: Reports as per HPI and Reports no additional cardiovascular complaints Respiratory: Respiratory: Reports as per HPI and Reports no additional respiratory complaints Gastrointestinal: Gastrointestinal: Reports as per HPI and Reports no additional gastrointestinal complaints Genitourinary: Genitourinary: Reports no additional female genitourinary complaints and Reports as per HPI Neurologic: Reports system reviewed and no additional complaints, except as documented and Reports as per HPI Psychiatric: Psychiatric: Reports no additional psychiatric complaints Endocrine: Endocrine: Reports no additional endocrine complaints Hematologic/Lymphatic: Hematologic/Lymphatic: Reports no additional hematologic/lymphatic complaints Allergic/Immunologic: Allergic/Immunologic: Reports no additional allergic/immunologic complaints [facility] Past Medical History Medical History (Updated 08/24/21 @ 11:01 by Jose Jansen MD) History of [place] (myocardial infarction) History of TIA (transient ischemic attack) Hypertension Surgical History Surgical History H/O: hysterectomy History of Family History Family History Mother Lung cancer, primary, with metastasis from lung to other site Father Breast cancer metastasized to brain Sibling DM2 (diabetes mellitus, type 2) Social History Social History Smoking packs per day: 1 Smoking cigarettes per day: 20.0 Years smoked: 39 Smoking pack-years: 39.00 Smoking status: Current every day smoker Tobacco type: cigarettes Second hand tobacco smoke exposure: Yes Alcohol intake: cu
[2021-08-24 09:02] VITALS: BP 153/113; PULSE 116; RESP 18; O2SAT 97
--- NOTE | 2021-08-24 09:21 | ECG_ITS ---
Measurements Intervals [place] Rate: 107 P: 55 [place]: 176 QRS: 67 QRSD: 88 T: 58 QT: 340 QTc: 455 Interpretive Statements SINUS TACHYCARDIA VENTRICULAR PREMATURE COMPLEXES BASELINE ARTIFACT- III, AVL ABNORMAL ECG Electronically Signed On 08-24-2021 12:17:57 ACTIVITIES DIRECTOR SCOUTING by Todd Ferguson D.O.
--- NOTE | 2021-08-24 09:31 | PC.NURSE ---
Pt changed into a gown and went to CT via wheelchair.
[2021-08-24 10:04] LABS: Basophils Absolute Auto 0.06 K/mm3 (0.00-0.10); Basophils Percent Auto 0.5 % (0.0-1.0); Eosinophils Absolute Auto 0.16 K/mm3 (0.02-0.50); Eosinophils Percent Auto 1.4 % (1.0-6.0); Hematocrit 42.7 % (35.0-49.0); Hemoglobin 14.7 g/dL (12.0-15.0); Immature Granulocyte Absolute 0.05 K/mm3 (0.00-0.00); Immature Granulocyte Percent A 0.4 % (0.0-0.0); Lymphocytes Absolute Auto 1.77 K/mm3 (1.10-4.50); Lymphocytes Percent Auto 15.1 % (18.0-42.0); Mean Corpuscular HGB Conc 34.4 g/dL (32.0-36.0); Mean Corpuscular Hemoglobin 32.6 pg (27.0-31.0); Mean Corpuscular Volume 94.7 fL (78.0-102.0); Monocytes Absolute Auto 0.91 K/mm3 (0.10-0.90); Monocytes Percent Auto 7.8 % (2.0-11.0); Neutrophils Absolute Auto 8.8 K/mm3 (1.7-7.2); Neutrophils Percent Auto 74.8 % (50.0-70.0); Platelet Count Result 284 K/mm3 (150-420); Red Blood Count 4.51 M/mm3 (4.20-5.40); Red Cell Distribution Width 12.5 % (11.6-14.4); White Blood Count 11.7 K/mm3 (4.8-10.8)
[2021-08-24 10:26] LABS: Alanine Aminotransferase 41 U/L (14-59); Albumin Level 3.8 g/dL (3.4-5.0); Alkaline Phosphatase 109 U/L (46-116); Anion Gap 10 mmol/L (8-16); Aspartate Amino Transferase 31 U/L (15-37); Bilirubin,Total 0.5 mg/dL (0.00-1.00); Blood Urea Nitrogen 13 mg/dL (7-18); Calcium 9.3 mg/dL (8.5-10.1); Carbon Dioxide 27 mmol/L (21-32); Chloride 100 mmol/L (98-108); Creatine Kinase 64 U/L (26-192); Estimated CRCL calculation 54 ml/min; Estimated Glomerular Filt Rate > 60; Glucose 114 mg/dL (70-99); Lipase 78 U/L (73-393); NT Pro B Type Natriuretic Pept 27 pg/mL (0-125); Osmolality Calculated 285 mOsm/kg (285-295); Potassium 4.3 mmol/L (3.5-5.1); Sodium 137 mmol/L (136-145); Total Protein 7.9 g/dL (6.4-8.2); Troponin I 5.9 ng/L (0.00-60.4)
[2021-08-24 11:47] VITALS: BP 132/89; PULSE 110; RESP 18; O2SAT 100
== END 2021-08-24 11:55 | disposition home or self-care (01) ==
PROVIDERS: Emergency Provider Internal Medicine Critical Care Medicine; PCP Family Medicine
DX: G40.909 Epilepsy, unspecified, not intractable, without status epilepticus (principal); I10 Essential (primary) hypertension
CPT/HCPCS: 36415; 70450; 80053; 82550; 83690; 83880; 84484; 85025; 93005; 99283; 99284

== ENCOUNTER 2021-11-02 09:38 | Emergency (ER) | payer OTHER, SELFPAY ==
--- NOTE | ~2021-11-02 | CT_ITS ---
EXAMINATION: CT brain wo [facility] EXAM DATE: 11/02/2021 10:22 INDICATION: Unresponsive episode. TECHNIQUE: Spiral CT of the head was performed without contrast. Axial, coronal and sagittal images were reviewed. The dose-length product (DLP) for this examination was 605.33 mGy-cm. The exposure w as tailored according to patient size, and iterative reconstruction (ASIR) was used as additional dos e reduction technique. Comparison is made to prior examination from 08/24/2021. FINDINGS: Mild microangiopathy. There is no acute intraparenchymal hemorrhage. No evidence of intrap arenchymal brain mass lesion. No evidence of acute infarction. There is no mass effect or midline s hift. The ventricles are normal in size. There are no extra-axial collections. There are no acute calvarial fractures. The orbits are unremarkable. Soft tissue is unremarkable. The visualized sinus es and mastoid air cells are well aerated. IMPRESSION: 1. No acute intracranial findings. 2. Mild microangiopathy. Reviewed, dictated and finalized at location A. SIT REFUND CLERK
--- NOTE | ~2021-11-02 | XR_ITS ---
EXAMINATION: XR chest 1V portable EXAM DATE: 11/02/2021 10:22 INDICATION: seizure-like episode TECHNIQUE: Portable AP frontal chest x-ray was obtained. Comparison is made to prior examination from 03/19/2021. FINDINGS: The lungs are clear. There are no pleural effusions. The cardiomediastinal silhouette is within normal limits. There is no pneumothorax suspected. The bones and soft tissues are unremarkab le. Moderate hyperinflation. IMPRESSION: 1. No acute cardiopulmonary findings. 2. Hyperinflation. Reviewed, dictated and finalized at location A. NOMY TEACHER
[2021-11-02 09:41] VITALS: BP 145/99; PULSE 110; RESP 16; TEMP 35.9; O2SAT 93
--- NOTE | 2021-11-02 09:49 | ECG_ITS ---
Measurements Intervals [place] Rate: 102 P: 69 [place]: 196 QRS: 87 QRSD: 87 T: 79 QT: 346 QTc: 452 Interpretive Statements SINUS TACHYCARDIA BASELINE ARTIFACT- I, II, AVR, V1-V6 BORDERLINE ECG Electronically Signed On 11-02-2021 19:08:37 ADMINISTRATIVE APPEALS TRIBUNAL MEMBER by Todd Ferguson D.O.
[2021-11-02] MEDS: SODIUM CHLORIDE 0.9% IV 1,000 ML 999 ML IV CONT (10:03)
[2021-11-02] MEDS: ACETAMINOPHEN 325 MG TABLET 650 MG PO (10:03)
[2021-11-02 10:06] LABS: Basophils Absolute Auto 0.04 K/mm3 (0.00-0.10); Basophils Percent Auto 0.5 % (0.0-1.0); Eosinophils Absolute Auto 0.13 K/mm3 (0.02-0.50); Eosinophils Percent Auto 1.5 % (1.0-6.0); Hematocrit 45.2 % (35.0-49.0); Hemoglobin 15.3 g/dL (12.0-15.0); Immature Granulocyte Absolute 0.03 K/mm3 (0.00-0.00); Immature Granulocyte Percent A 0.3 % (0.0-0.0); Lymphocytes Percent Auto 16.1 % (18.0-42.0); Mean Corpuscular HGB Conc 33.8 g/dL (32.0-36.0); Mean Corpuscular Hemoglobin 33.4 pg (27.0-31.0); Mean Corpuscular Volume 98.7 fL (78.0-102.0); Mean Platelet Volume 9.4 fl (9.2-11.8); Monocytes Absolute Auto 0.53 K/mm3 (0.10-0.90); Monocytes Percent Auto 6.1 % (2.0-11.0); Neutrophils Absolute Auto 6.6 K/mm3 (1.7-7.2); Neutrophils Percent Auto 75.5 % (50.0-70.0); Platelet Count Result 260 K/mm3 (150-420); Red Blood Count 4.58 M/mm3 (4.20-5.40); Red Cell Distribution Width 12.3 % (11.6-14.4); White Blood Count 8.7 K/mm3 (4.8-10.8)
--- NOTE | 2021-11-02 10:11 | ED.GENADULT ---
HPI - General Adult General Chief complaint: Unspecified Stated complaint: ambulance Time Seen by Provider: 11/02/21 09:42 Source: patient, EMS and RN notes reviewed Mode of arrival: EMS Limitations: no limitations History of Present Illness Onset (ago): hour(s) (2) Location: head (pt spouse told EMS pt had had a seizure while sleeping. ) Radiation: other (pain-free) Severity: mild Relieving factors: none Exacerbating factors: none Associated symptoms: nausea/vomiting Treatments prior to arrival: other (see EMS notes.) Related Data Home Medications Medication Instructions Recorded Confirmed irbesartan-hydrochlorothiazide 1 tablet PO DAILY 03/29/20 08/24/21 metoprolol succinate 50 mg PO DAILY 03/19/21 08/24/21 pravastatin 20 mg PO DAILY 03/19/21 03/19/21 Allergies Allergy/AdvReac Type Severity Reaction Status Date / Time hydrocodone Allergy Severe Unknown Verified 08/24/21 09:01 Penicillins Allergy Severe Nausea and Verified 08/24/21 09:01 Vomiting CODEINE (Generic Allergy) Allergy Severe Y Uncoded 03/19/21 14:24 1. CODIENE 2.PCN 3. BITH Allergy Unknown Nausea and Uncoded 03/19/21 14:24 CONTROLL PILLS Vomiting NKFA Allergy Unknown Unknown Uncoded 03/19/21 14:24 CONTRCEPTIVES Allergy Hives Uncoded 03/19/21 14:24 Review of Systems Review of Systems: All systems reviewed & are unremarkable except as noted in HPI and below PMFSH Past Medical History Medical History History of [place] (myocardial infarction) History of TIA (transient ischemic attack) Hypertension Surgical History Surgical History H/O: hysterectomy History of Family History Family History Mother Lung cancer, primary, with metastasis from lung to other site Father Breast cancer metastasized to brain Sibling DM2 (diabetes mellitus, type 2) Social History Social History Smoking packs per day: 1 Smoking cigarettes per day: 20.0 Years smoked: 39 Smoking pack-years: 39.00 Smoking status: Current every day smoker Tobacco type: cigarettes Second hand tobacco smoke exposure: Yes Alcohol intake: current Drinks per week: 2 Substance use: never Gender identity (if verbalized by the patient): Female Spiritual care concerns: No Exam Const: General: cooperative, healthy appearing, comfortable, well developed, alert, awake and well groomed Nutritional Appearance: well nourished Orientation/consciousness: patient oriented x3 Limitations: no limitations HENMT: Head: normal to inspection, normocephalic and atraumatic Ears: hearing grossly normal bilaterally, external ears normal, TM's normal bilaterally and EAC's normal General nose exam: Normal external nose present and Normal nares present Face and sinus: normal facial exam and sinuses nontender Mouth: Yes Normal oral and palatal mucosa present, Yes lip normal, Yes tongue normal, Yes oropharynx normal and Yes moist mucous membranes Throat: posterior oropharynx normal Eyes: General: appearance normal, both eyes and all related structures Periorbital: periorbital findings normal Eyelids: eyelids normal Conjunctivae: conjunctivae normal Sclera: sclerae normal Cornea: corneas normal Pupils: Equal, round and reactive pupils present EOM: EOMs intact bilaterally Neck: Neck: normal visual inspection, full ROM, no lymphadenopathy and no meningeal signs Chest: Chest palpation & inspection: normal inspection of the chest and normal palpation of entire chest wall Resp: Effort & Inspection: normal respiratory effort and able to speak in complete sentences Auscultation: clear to auscultation bilaterally Cardio: Jugular venous distension: no JVD Rate: regular rate Rhythm: regular rhythm Heart sounds: S1 normal heart sound present and S2 normal
[2021-11-02 10:23] LABS: Alanine Aminotransferase 49 U/L (14-59); Albumin Level 3.5 g/dL (3.4-5.0); Alkaline Phosphatase 93 U/L (46-116); Anion Gap 9 mmol/L (8-16); Aspartate Amino Transferase 31 U/L (15-37); Bilirubin,Total 0.2 mg/dL (0.00-1.00); Blood Urea Nitrogen 12 mg/dL (7-18); Carbon Dioxide 28 mmol/L (21-32); Chloride 103 mmol/L (98-108); Estimated CRCL calculation 54 ml/min; Estimated Glomerular Filt Rate > 60; Ethanol 4 mg/dL (0-6); Glucose 121 mg/dL (70-99); Osmolality Calculated 290 mOsm/kg (285-295); Potassium 4.5 mmol/L (3.5-5.1); Sodium 140 mmol/L (136-145); Total Protein 7.6 g/dL (6.4-8.2); Troponin I 7.2 ng/L (0.00-60.4)
[2021-11-02 11:27] VITALS: BP 141/96; PULSE 105; RESP 16; O2SAT 96
== END 2021-11-02 12:04 | disposition home or self-care (01) ==
PROVIDERS: Emergency Provider Emergency Medicine; PCP Family Medicine
DX: R25.1 Tremor, unspecified (principal)
CPT/HCPCS: 36415; 70450; 71045; 80053; 80307; 84484; 85025; 93005; 96360; 99284; A9270; J7030

== ENCOUNTER 2022-01-06 17:27 | Emergency (ER) | payer OTHER, SELFPAY ==
[2022-01-06] VITALS (8 sets, daily range): BP systolic 97–132; BP diastolic 73–93; PULSE 96–102; RESP 16–20; TEMP 36.1–36.2; O2SAT 98–100
--- NOTE | ~2022-01-06 | CT_ITS ---
EXAMINATION: CT brain wo con DATE: 01/06/2022 18:46 INDICATION: head injury with frontal [place] after seizure today TECHNIQUE: Computed tomography (CT) of the head was performed without intravenous contrast. The mA wa s adjusted according to patient size. Iterative reconstruction technique was employed. The dose-lengt h product was 605.33 mGy-cm. COMPARISON: 11/02/21 FINDINGS: No acute intracranial hemorrhage or extra-axial fluid collection. No hydrocephalus, mass, or herniation. No acute ischemic infarct. Unremarkable dural venous sinus attenuation. No acute osseous abnormality. Small right frontal contusion. The aerated spaces are clear. Mild chronic white matter change. Atherosclerotic intracranial calcifications. IMPRESSION: No acute intracranial process. Reviewed, dictated and finalized at location K.
--- NOTE | ~2022-01-06 | XR_ITS ---
EXAM: XR pelvis 1-2V HISTORY: fall today COMPARISON: None FINDINGS: Decreased mineralization. No fracture or dislocation. No lytic or blastic lesion. Degenera tive changes in the lower lumbar spine bilateral hips and pubic symphysis. No erosion or periosteal c hange. Soft tissues within normal limits. IMPRESSION: No acute osseous finding in the pelvis. Reviewed, dictated and finalized at location K.
--- NOTE | ~2022-01-06 | CT_ITS ---
EXAMINATION: CT facial & cervical spine wo DATE: 01/06/2022 18:48 INDICATION: fall today after seizure. laceration with c collar placed TECHNIQUE: Computed tomography (CT) of the maxillofacial region and cervical spine was performed with out intravenous contrast. Automated exposure control and iterative reconstruction technique were empl oyed. The dose-length product was 140.00 mGy-cm. COMPARISON: CT C-spine 04/15/2013 FINDINGS: CERVICAL: Counting reference: Craniocervical junction. There are seven cervical type vertebral bodies.. Anatomic Variants: None.. Vertebral Body Alignment: Intact. Craniocervical junction: Moderate degenerative change. Alignment intact. Osseous structures/fracture: No evidence of a lytic or blastic process in the visualized spine. N o evidence of acute fracture. Cervical soft tissues: The paraspinal soft tissues planes are maintained. Degenerative changes: Multilevel degenerative disc disease in the mid and lower cervical spine. Sever e left neural foraminal narrowing at C6-7. FACE: Soft Tissues: Small right frontal contusion.. Facial bones: No acute fracture. No lytic or blastic process. Eyes: The globes are intact. The soft tissue planes of the orbits are maintained. Paranasal Sinuses: Small right maxillary retention cyst or polyp, otherwise the visualized aerated s paces are clear. Foreign Bodies: No radiopaque foreign bodies. Other Findings: Periapical lucency at the roots of a right mandibular molar. IMPRESSION: No acute fracture or traumatic malalignment in the cervical spine. No acute facial bone fracture. Per iodontal disease. Reviewed, dictated and finalized at location K. IMPRESSION: No acute fracture or traumatic malalignment in the cervical spine. No acute fac ial bone fracture. Periodontal disease.
--- NOTE | ~2022-01-06 | XR_ITS ---
EXAMINATION: XR chest 1V portable Exam Date/Time: 01/06/2022 18:35 CDT CLINICAL HISTORY: fall w/ weakness Comparison: 11/02/2021. RESULT: Lines, tubes, and devices: None. Lungs and pleura: Clear. Cardiomediastinal silhouette: Stable cardiomediastinal silhouette. Other: No acute osseous or upper abdominal finding. IMPRESSION: No acute cardiopulmonary process Reviewed, dictated and finalized at location K.
--- NOTE | 2022-01-06 17:40 | ED.SEIZURE ---
HPI - Seizure General Chief Complaint: Seizure Stated Complaint: amb Time Seen by Provider: 01/06/22 17:40 Source: patient History of Present Illness HPI Narrative: 56-year-old female with a history of smoking, alcohol usehypertension CVA/ CAD / [place] 2019 presents to the ER 02/24/2022 for shaking /seizure activity -- seizures while she was preparing food. Patient fell down. seizures lasted 15 minutes. She had another episode of seizures last night. she prior episode of seizures -- nasal injury along with forehead hematoma her family witnessed the seizure and called EMS.. When the patient regained consciousness she noted EMS around her. Normal blood sugars. No focal neuro deficits noted. no family history of seizure disorder -- postictal headache. called the and his son who were present while she was convulsing at home. They heard the thud and ran into the kitchen where the patient was making sandwiches. The patient was on the floor with generalized clonic activity and foaming at the mouth. The patient's seizure lasted 5-7 minutes following which she had a postictal phase during which she gradually regained her mental abilities. The patient did not have any focal neuro deficits. Her speech was clear. No urinary incontinence. The patient did complain of generalized headache. patient is being worked up by a neurologist and has had EEG and an MRI in [place]. The patient has a follow-up appointment with the neurologist on January 20. complaint: seizure Onset (ago): hour(s) ( started 1 hour ago) Description of Episode: loss of consciousness, tonic-clonic movement and other ( no incontinence. noTongue bite) -: minutes(s) ( seizure lasted 15 minutes) Witnessed: Yes - by Bystander Trauma: Yes Seizure History: Yes Place: home Possible Precipitating Event: none Associated symptoms: denies other symptoms Treatments prior to arrival: none Related Data Home Medications Medication Instructions Recorded Confirmed irbesartan-hydrochlorothiazide 1 tablet PO DAILY 03/29/20 01/06/22 metoprolol succinate 50 mg PO DAILY 03/19/21 01/06/22 pravastatin 20 mg PO DAILY 03/19/21 01/06/22 Allergies Allergy/AdvReac Type Severity Reaction Status Date / Time hydrocodone Allergy Severe Unknown Verified 01/06/22 17:35 Penicillins Allergy Severe Nausea and Verified 01/06/22 17:35 Vomiting CODEINE (Generic Allergy) Allergy Severe Y Uncoded 01/06/22 17:35 1. CODIENE 2.PCN 3. BITH Allergy Unknown Nausea and Uncoded 01/06/22 17:35 CONTROLL PILLS Vomiting NKFA Allergy Unknown Unknown Uncoded 03/19/21 14:24 CONTRCEPTIVES Allergy Hives Uncoded 01/06/22 17:35 Review of Systems Review of Systems: All systems reviewed & are unremarkable except as noted in HPI and below Constitutional: Constitutional: Reports as per HPI and Reports no additional constitutional complaints Eyes: Eyes: Reports as per HPI and Reports no additional eye complaints ENT: Reports system reviewed and no additional complaints, except as documented and Reports as per HPI Cardiovascular: Cardiovascular: Reports as per HPI and Reports no additional cardiovascular complaints Respiratory: Respiratory: Reports as per HPI and Reports no additional respiratory complaints Gastrointestinal: Gastrointestinal: Reports as per HPI and Reports no additional gastrointestinal complaints Genitourinary: Genitourinary: Reports no additional female genitourinary complaints and Reports genital lesions Musculoskeletal: Musculoskeletal: Reports no additional musculoskeletal complaints and Reports as per HPI Integumentary/Breasts: Skin/Breast: Reports system reviewed and no additional complaints, except as docu Comments: Contusion of her right forehead, nose Neurologic: Reports system reviewed and no additional complaints, except as documented, Reports as per HPI and Reports headache(s) Psychiatric: Psychiatric: Reports no additional psychiatric complaints and Repo
--- NOTE | 2022-01-06 17:50 | ECG_ITS ---
Measurements Intervals [place] Rate: 95 P: 46 UT: 225 QRS: 62 QRSD: 96 T: 51 QT: 369 QTc: 466 Interpretive Statements SINUS RHYTHM WITH FIRST DEGREE AV BLOCK BASELINE ARTIFACT- I, II, III, AVR, AVL, AVF, V1 ABNORMAL ECG Electronically Signed On 01-06-2022 20:27:17 CDT by Todd Ferguson D.O.
--- NOTE | 2022-01-06 18:00 | PC.NURSE ---
CALLED FLOOR FOR JULIETH, TERRI IN ED NUSRATS
[2022-01-06] MEDS: levETIRAcetam 1000MG/NACL100ML 1,000 MG/100 ML BAG 400 MG IVPB (18:13)
[2022-01-06 18:14] LABS: Basophils Absolute Auto 0.08 K/mm3 (0.00-0.10); Basophils Percent Auto 0.8 % (0.0-1.0); Eosinophils Absolute Auto 0.18 K/mm3 (0.02-0.50); Eosinophils Percent Auto 1.7 % (1.0-6.0); Hematocrit 44.6 % (35.0-49.0); Hemoglobin 14.9 g/dL (12.0-15.0); Immature Granulocyte Absolute 0.04 K/mm3 (0.00-0.00); Immature Granulocyte Percent A 0.4 % (0.0-0.0); Lymphocytes Absolute Auto 2.59 K/mm3 (1.10-4.50); Lymphocytes Percent Auto 24.9 % (18.0-42.0); Mean Corpuscular HGB Conc 33.4 g/dL (32.0-36.0); Mean Corpuscular Hemoglobin 33.5 pg (27.0-31.0); Mean Corpuscular Volume 100.2 fL (78.0-102.0); Mean Platelet Volume 9.6 fl (9.2-11.8); Monocytes Absolute Auto 0.97 K/mm3 (0.10-0.90); Monocytes Percent Auto 9.3 % (2.0-11.0); Neutrophils Absolute Auto 6.5 K/mm3 (1.7-7.2); Neutrophils Percent Auto 62.9 % (50.0-70.0); Platelet Count Result 264 K/mm3 (150-420); Red Blood Count 4.45 M/mm3 (4.20-5.40); Red Cell Distribution Width 12.7 % (11.6-14.4); White Blood Count 10.4 K/mm3 (4.8-10.8)
--- NOTE | 2022-01-06 18:18 | PC.NURSE ---
PT IS IN CT AT THIS TIME. PT IS AWAITING LAB RESULTS AT PRESENT. IV MEDICATIONS INFUSING ORDERED WITHOUT DIFFICULTY. PT C/O HEADACHE AND NECK PAIN, PT WAS REQUESTING TO REMOVE C COLLAR PRIOR TO CT, EDUCATED PT ON THE IMPORTANCE OF WEARING IT. BLANKETS WERE PLACED OVER GUARD RAILS. WILL CONTINUE TO MONITOR.
[2022-01-06 18:39] LABS: Prothrombin Time 10.3 Seconds (9.50-12.10)
[2022-01-06 18:45] LABS: Lactic Acid Reflex 2.1 mmol/L (0.4-2.0)
--- NOTE | 2022-01-06 18:46 | PC.NURSE ---
PT HAS RETURNED FROM CT, TOLERATED WELL PER ROBOT PROGRAMMER. VSS PER MONITOR.
[2022-01-06 18:54] LABS: Alanine Aminotransferase 46 U/L (14-59); Albumin Level 3.8 g/dL (3.4-5.0); Alkaline Phosphatase 94 U/L (46-116); Ammonia < 10 umol/L (11-32); Anion Gap 7 mmol/L (8-16); Aspartate Amino Transferase 36 U/L (15-37); Bilirubin,Total 0.4 mg/dL (0.00-1.00); Blood Urea Nitrogen 20 mg/dL (7-18); Calcium 9.4 mg/dL (8.5-10.1); Carbon Dioxide 29 mmol/L (21-32); Chloride 96 mmol/L (98-108); Estimated CRCL calculation 50 ml/min; Estimated Glomerular Filt Rate 54; Glucose 148 mg/dL (70-99); Magnesium 2.1 mg/dL (1.8-2.4); NT Pro B Type Natriuretic Pept 60 pg/mL (0-125); Osmolality Calculated 279 mOsm/kg (285-295); Potassium 3.8 mmol/L (3.5-5.1); Sodium 132 mmol/L (136-145); Total Protein 7.6 g/dL (6.4-8.2); Troponin I 6.1 ng/L (0.00-60.4)
[2022-01-06] MEDS: ONDANSETRON INJ 4 MG/2 ML VIAL IV PUSH (19:44)
[2022-01-06] MEDS: HYDROmorphone HCL INJ (*CRX) 2 MG/ML VIAL 0.5 MG IV PUSH (19:44)
--- NOTE | 2022-01-06 19:47 | PC.NURSE ---
Call placed to pts. spouse by ERP and details given on what happened during seizure episode at home that was witnessed, Pt is currently A&O x3, able to answer all questions appropriately and has discussed POC to go home and f/u c neurologist as planned. VSS.
== END 2022-01-06 20:25 | disposition home or self-care (01) ==
PROVIDERS: Emergency Provider Internal Medicine Critical Care Medicine; PCP Family Medicine
DX: R56.9 Unspecified convulsions (principal); S09.90XA Unspecified injury of head, initial encounter; W19.XXXA Unspecified fall, initial encounter
CPT/HCPCS: 36415; 70450; 70486; 71045; 72125; 72170; 80053; 82140; 83605; 83735; 83880; 84484; 85025; 85610; 93005; 96374; 96375; 99284; J1170; J1953; J2405

== ENCOUNTER 2022-03-28 13:20 | Outpatient (CLI) | payer OTHER, SELFPAY ==
[2022-03-28 13:57] LABS: Hemoglobin A1C 5.9 % (<5.7)
[2022-03-28 14:06] LABS: Cholesterol 216 mg/dL (0-200); HDL Direct 48 mg/dL (40-60); LDL Cholesterol Calculated 137 mg/dL (<130); Triglycerides 155 mg/dL (0-150)
== END 2022-03-28 13:21 | disposition home or self-care (01) ==
LOC: CHSLAB 13:25
PROVIDERS: PCP Family Medicine
DX: I10 Essential (primary) hypertension (principal)
CPT/HCPCS: 36415; 80061; 83036

== ENCOUNTER 2023-05-13 10:14 | Emergency (ER) | payer OTHER, SELFPAY ==
[2023-05-13] VITALS (15 sets, daily range): BP systolic 116–155; BP diastolic 73–102; PULSE 127–146; RESP 20; TEMP 37; O2SAT 97–99
--- NOTE | ~2023-05-13 | CT_ITS ---
EXAMINATION: CT brain wo con INDICATION: Head injury COMPARISON: 01/06/2022 TECHNIQUE: Standard unenhanced head CT. The dose-length product (DLP) was 605.33 mGy-cm. The mA was a djusted according to patient size. Iterative reconstruction technique was employed. FINDINGS: No intracranial hemorrhage, acute infarction, or abnormal mass lesion. The ventricles are n ormal. No abnormal mass effect or midline shift. The reyes-white matter differentiation is normal. The basal cisterns are patent. The orbits are normal. The paranasal sinuses, mastoids and calvarium are normal. IMPRESSION: 1. No acute intracranial abnormality. Reviewed, dictated and finalized at location B.
--- NOTE | ~2023-05-13 | CT_ITS ---
EXAMINATION: CT cervical spine wo con DATE: 05/13/2023 11:15 INDICATION: Head injury. TECHNIQUE: Computed tomography (CT) of the cervical spine was performed without intravenous contrast. Automated exposure control and iterative reconstruction technique were employed. The dose-length pro duct was 138.77 mGy-cm. COMPARISON: CT cervical spine 01/06/2022 FINDINGS: There is mild cervical kyphosis. Vertebral body heights are normal. There is mildly decreas ed disc height at C4-C5 and severely decreased disc height at C5-C6 and C6-C7. The following disc lev els are specifically discussed: C2-C3: There is mild bilateral uncovertebral joint osteoarthritis. There is severe bilateral facet ronald int osteoarthritis. There is mild left neural foraminal stenosis. There is no central canal stenosis. C3-C4: There is moderate and severe left uncovertebral joint osteoarthritis. There is mild right and severe left facet joint osteoarthritis. There is mild left neural foraminal stenosis. There is no alina tral canal stenosis. C4-C5: There is mild bilateral uncovertebral joint osteoarthritis. There is moderate right and mild l eft facet joint osteoarthritis. There is no neural foraminal stenosis. There is no central canal sten osis. C5-C6: There is severe bilateral uncovertebral joint osteoarthritis. There is moderate right and mild left facet joint osteoarthritis. There is mild bilateral neural foraminal stenosis. There is mild ce ntral canal stenosis. C6-C7: There is moderate and severe left uncovertebral joint osteoarthritis. There is mild bilateral facet joint osteoarthritis. There is mild bilateral neural foraminal stenosis. There is mild central canal stenosis. C7-T1: There is no uncovertebral joint osteoarthritis. There is moderate right and severe left facet joint osteoarthritis. There is mild left neural foraminal stenosis. There is no central canal stenosi s. IMPRESSION: 1. No fracture. 2. Severe cervical spondylosis. Reviewed, dictated and finalized at location A.
--- NOTE | ~2023-05-13 | XR_ITS ---
EXAMINATION: XR pelvis 1-2V DATE: 05/13/2023 11:15 INDICATION: Pelvis injury. TECHNIQUE: An anteroposterior view of the pelvis was obtained. COMPARISON: Pelvis radiograph 01/06/2022 FINDINGS: Bone alignment is normal. No fracture. There is moderate osteoarthritis of the hips. IMPRESSION: 1. Moderate osteoarthritis of the hips. Reviewed, dictated and finalized at location A.
--- NOTE | 2023-05-13 10:25 | ED.SEIZURE ---
HPI - Seizure General Chief Complaint: Seizure Stated Complaint: seizure, headache Time Seen by Provider: 05/13/23 10:19 Source: patient Mode of arrival: ambulatory Limitations: no limitations History of Present Illness HPI Narrative: 58-year-old female smoker, regular alcohol use, hypertension, dyslipidemia, CVA CAD/ seizure disorder on Briviact was brought in by the ambulance for -- unwitnessed seizures. She was initially placed on Keppra and subsequently switched to Briviact a few months ago. She has had ongoing seizures. Her last seizure was 3-4 days ago. -- 3 cm frontal scalp laceration after she fell forwards -- Postictal headache the patient has no recollection of the events. When she woke up she found herself in a pool of blood. No focal neuro deficits. no tongue bite. No incontinence. 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 (CDL) as part of your employment, either self-employed or otherwise?: No Related Data Home Medications Medication Instructions Recorded Confirmed irbesartan 300 1 tablet PO DAILY 03/29/20 05/13/23 mg-hydrochlorothiazide 12.5 mg tablet metoprolol succinate 25 mg 50 mg PO DAILY 03/19/21 05/13/23 tablet,extended release 24 hr pravastatin 20 mg tablet 20 mg PO DAILY 03/19/21 05/13/23 Allergies Allergy/AdvReac Type Severity Reaction Status Date / Time hydrocodone Allergy Severe Unknown Verified 01/06/22 17:35 Penicillins Allergy Severe Nausea and Verified 01/06/22 17:35 Vomiting CODEINE (Generic Allergy) Allergy Severe Y Uncoded 01/06/22 17:35 1. CODIENE 2.PCN 3. BITH Allergy Unknown Nausea and Uncoded 01/06/22 17:35 CONTROLL PILLS Vomiting NKFA Allergy Unknown Unknown Uncoded 03/19/21 14:24 CONTRCEPTIVES Allergy Hives Uncoded 01/06/22 17:35 Review of Systems Review of Systems: All systems reviewed & are unremarkable except as noted in HPI and below Constitutional: Constitutional: Reports as per HPI and Reports no additional constitutional complaints Eyes: Eyes: Reports as per HPI and Reports no additional eye complaints ENT: Reports system reviewed and no additional complaints, except as documented and Reports as per HPI Cardiovascular: Cardiovascular: Reports as per HPI and Reports no additional cardiovascular complaints Respiratory: Respiratory: Reports as per HPI and Reports no additional respiratory complaints Gastrointestinal: Gastrointestinal: Reports as per HPI and Reports no additional gastrointestinal complaints Genitourinary: Genitourinary: Reports no additional female genitourinary complaints and Reports as per HPI Musculoskeletal: Musculoskeletal: Reports no additional musculoskeletal complaints and Reports as per HPI Integumentary/Breasts: Skin/Breast: Reports system reviewed and no additional complaints, except as docu Comments: 3 cm scalp laceration Neurologic: Reports system reviewed and no additional complaints, except as documented and Reports as per HPI Psychiatric: Psychiatric: Reports no additional psychiatric complaints and Reports as per HPI Endocrine: Endocrine: Reports no additional endocrine complaints and Reports as per HPI Hematologic/Lymphatic: Hematologic/Lymphatic: Reports no additional hematologic/lymphatic complaints and Reports as per HPI Allergic/Immunologic: Allergic/Immunologic: Reports no additional allergic/immunologic complaints and Reports as per HPI [facility] Past Medical History Medical History (Updated 05/13/23 @ 12:58 by Jose Jansne MD) History of [place] (myocardial infarction) History of TIA (transient ischemic attack) Hypertension Seizures Surgical History Surgical History (Reviewed 0
[2023-05-13] MEDS: LACTATED RINGERS 1,000 ML 999 ML (10:40)
--- NOTE | 2023-05-13 10:40 | ECG_ITS ---
Measurements Intervals [place] Rate: 126 P: 74 [place]: 175 QRS: 77 QRSD: 98 T: 63 QT: 319 QTc: 462 Interpretive Statements SINUS TACHYCARDIA BASELINE ARTIFACT- I, II, AVL ABNORMAL ECG COMPARED TO ECG 01/06/2022 18:07:40 SINUS TACHYCARDIA NOW PRESENT Electronically Signed On 05-13-2023 11:24:08 CDT by Todd Ferguson D.O.
[2023-05-13 11:29] LABS: Appearance Urine Clear (Clear); Bilirubin Urine Negative (Negative); Blood Urine 3+ (Negative); Color Urine Light Yellow (Yellow); Glucose Urine UA Negative (Negative); Ketones Urine Negative (Negative); Leukocyte Esterase Ur Negative LEU/UL (Negative); Nitrate Urine Negative (Negative); Protein Urine Trace (Negative); Specific Grav Ur 1.015 (1.010-1.020); Urobilinogen Urine 0.2 mg/dL (0.2-1.0); pH Urine 5.5 (5.0-8.0)
--- NOTE | 2023-05-13 11:30 | PC.NURSE ---
1120 family at bedside with pt. pt was able to ambulate to bathroom. stated slight lightheadedness. subsided after up and ambulating.
[2023-05-13 11:34] LABS: Add Urine Microscopic? YES; Bacteria Urine Trace /hpf; Mucus Urine Moderate /lpf; RBC Urine None seen /hpf (0-2); Squamous Epithelial Cell Urine Rare /hpf (Few)
[2023-05-13 11:36] LABS: Amphetamine Screen Urine Negative (Negative); Barbiturate Screen Urine Negative (Negative); Benzodiazepines Screen Urine Negative (Negative); Cannabinoid Screen Urine Positive (Negative); Cocaine Screen Urine Negative (Negative); Methadone Screen Urine Negative (Negative); Opiate Screen Urine Negative (Negative); Phencyclidine Screen Urine Negative (Negative)
[2023-05-13 11:55] LABS: Basophils Absolute Auto 0.08 K/mm3 (0.00-0.10); Basophils Percent Auto 0.5 % (0.0-1.0); Eosinophils Absolute Auto 0.01 K/mm3 (0.02-0.50); Eosinophils Percent Auto 0.1 % (1.0-6.0); Hemoglobin 13.7 g/dL (12.0-15.0); Immature Granulocyte Absolute 0.09 K/mm3 (0.00-0.00); Immature Granulocyte Percent A 0.5 % (0.0-0.0); Lymphocytes Absolute Auto 1.62 K/mm3 (1.10-4.50); Lymphocytes Percent Auto 9.4 % (18.0-42.0); Mean Corpuscular HGB Conc 33.4 g/dL (32.0-36.0); Mean Corpuscular Hemoglobin 33.1 pg (27.0-31.0); Mean Platelet Volume 9.6 fl (9.2-11.8); Monocytes Absolute Auto 1.02 K/mm3 (0.10-0.90); Monocytes Percent Auto 5.9 % (2.0-11.0); Neutrophils Absolute Auto 14.4 K/mm3 (1.7-7.2); Neutrophils Percent Auto 83.6 % (50.0-70.0); Platelet Count Result 236 K/mm3 (150-420); Red Blood Count 4.14 M/mm3 (4.20-5.40); White Blood Count 17.2 K/mm3 (4.8-10.8)
[2023-05-13 12:15] LABS: Lactic Acid Reflex 2.8 mmol/L (0.4-2.0)
[2023-05-13 12:26] LABS: Alanine Aminotransferase 32 U/L (14-59); Albumin Level 3.6 g/dL (3.4-5.0); Alkaline Phosphatase 105 U/L (46-116); Anion Gap 8 mmol/L (8-16); Aspartate Amino Transferase 30 U/L (15-37); Bilirubin,Total 0.5 mg/dL (0.00-1.00); Blood Urea Nitrogen 11 mg/dL (7-18); Calcium 9.4 mg/dL (8.5-10.1); Carbon Dioxide 26 mmol/L (21-32); Chloride 99 mmol/L (98-108); Creatine Kinase 110 U/L (26-192); Estimated CRCL calculation 57 ml/min; Estimated Glomerular Filt Rate > 60; Ethanol 3 mg/dL (0-6); Glucose 102 mg/dL (70-99); Magnesium 1.6 mg/dL (1.8-2.4); Osmolality Calculated 275 mOsm/kg (285-295); Potassium 3.8 mmol/L (3.5-5.1); Sodium 133 mmol/L (136-145); Total Protein 7.6 g/dL (6.4-8.2); Troponin I 9.7 ng/L (0.00-60.4)
[2023-05-13] MEDS: TETANUS,DIPHTHERIA,AC PERTUSSIS ADULT 0.5 ML (ADACEL) IM (13:26)
[2023-05-13 13:56] LABS: Reflex Lactic Acid Yes or No No Lactic Reflex
== END 2023-05-13 13:36 | disposition home or self-care (01) ==
PROVIDERS: Emergency Provider Internal Medicine Critical Care Medicine; PCP Family Medicine
DX: S01.01XA Laceration without foreign body of scalp, initial encounter (principal); G40.909 Epilepsy, unspecified, not intractable, without status epilepticus; R51.9 Headache, unspecified; I10 Essential (primary) hypertension; I25.10 Atherosclerotic heart disease of native coronary artery without angina pectoris; I25.2 Old myocardial infarction; F17.210 Nicotine dependence, cigarettes, uncomplicated; Z86.73 Personal history of transient ischemic attack (TIA), and cerebral infarction without residual deficits; Z79.899 Other long term (current) drug therapy; Z23 Encounter for immunization; W19.XXXA Unspecified fall, initial encounter
CPT/HCPCS: 12002; 36415; 70450; 72125; 72170; 80053; 80307; 81001; 82550; 83605; 83735; 84484; 85025; 90471; 90715; 93005; 96360; 99284; J7030; J7120

== ENCOUNTER 2024-06-14 11:12 | Outpatient (CLI) | payer OTHER, SELFPAY ==
[2024-06-14 12:51] LABS: Alanine Aminotransferase 36 U/L (14-59); Albumin Level 3.6 g/dL (3.4-5.0); Alkaline Phosphatase 114 U/L (46-116); Anion Gap 8 mmol/L (4-12); Aspartate Amino Transferase 32 U/L (15-37); Bilirubin,Total 0.4 mg/dL (0.00-1.00); Blood Urea Nitrogen 7 mg/dL (7-18); Calcium 8.9 mg/dL (8.5-10.1); Carbon Dioxide 32 mmol/L (21-32); Chloride 101 mmol/L (98-108); Estimated Glomerular Filt Rate > 60; Glucose 88 mg/dL (70-99); Osmolality Calculated 289 mOsm/kg (285-295); Potassium 4.2 mmol/L (3.5-5.1); Sodium 141 mmol/L (136-145); Total Protein 7.3 g/dL (6.4-8.2)
== END 2024-06-14 11:13 | disposition home or self-care (01) ==
PROVIDERS: PCP Family Medicine; Visit Provider Psychiatry & Neurology Neurology
DX: G40.909 Epilepsy, unspecified, not intractable, without status epilepticus (principal)
CPT/HCPCS: 36415; 80053

== ENCOUNTER 2024-09-05 22:48 | Emergency (ER) | payer OTHER, SELFPAY ==
--- NOTE | ~2024-09-05 | XR_ITS ---
XR chest 2V Ordering provider: Bradley Segundo MD History: 59 years Female with . seizure/PT STATES NO CHEST COMPLAINTS . Comparison: January 06, 2022 FINDINGS: MEDIASTINUM: The cardiac silhouette is not enlarged. LUNGS: No infiltrates, effusions or pneumothorax. OTHER: No free air under the diaphragm. IMPRESSION: No acute cardiopulmonary pathology. Reviewed, dictated and finalized at location A. CTURAL LAYOUT WORKER
--- NOTE | ~2024-09-05 | CT_ITS ---
CT brain wo con Ordering provider: Bradley Segundo MD History: 59 years Female with . seizure/HX OF SEIZURES . Comparison: None. Technique: CT of the head without contrast. Radiation reduction technique utilized.The dose-length product was 681 mGy-cm. FINDINGS: BRAIN PARENCHYMA AND CSF SPACES: No midline shift, mass effect or hemorrhage. The brain parenchyma a nd CSF spaces are otherwise normal. VISUALIZED PARANASAL SINUSES: Well aerated. MASTOIDS: Well aerated. BONES: The bones appear intact. SOFT TISSUES: Visualized nasopharynx is normal. Superficial soft tissues are normal. IMPRESSION: No acute intracranial findings. Reviewed, dictated and finalized at location A. HER AIDE
[2024-09-05 22:48] VITALS: BP 144/91; PULSE 107; RESP 17; TEMP 36.5; O2SAT 98
--- NOTE | 2024-09-05 22:51 | ED_ITS ---
HPI - Seizure General Chief Complaint: Seizure Stated Complaint: seizure Time Seen by Provider: 09/05/24 22:49 Source: patient and family Mode of arrival: ambulatory Limitations: no limitations History of Present Illness HPI Narrative: Patient is a 59-year-old female with known seizures comes in with an episode this evening witnessed by her partner. She had about a minute long seizure noted tonic-clonic movement and postictal state. She does not remember the event. She does not have a headache. She does not have muscle aches. She does not believe a seizure occurred this evening. 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 (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) as part of your employment, either self-employed or otherwise?: No What is your current occupation: patient is not driving since she has not had 6 months clear of no seizures Related Data Home Medications ?Medication ?Instructions ?Recorded ?Confirmed ?Last Taken ?Type irbesartan 300 1 tablet PO DAILY 03/29/20 09/05/24 03/29/20 History mg-hydrochlorothiazide 12.5 mg tablet metoprolol succinate 25 mg 50 mg PO DAILY 03/19/21 09/05/24 Unknown History tablet,extended release 24 hr pravastatin 20 mg tablet 20 mg PO DAILY 03/19/21 09/05/24 Unknown History oxcarbazepine 150 mg tablet 150 mg PO DAILY 09/05/24 09/05/24 Unknown History Allergies Allergy/AdvReac Type Severity Reaction Status Date / Time hydrocodone Allergy Severe Unknown Verified 09/05/24 22:55 Penicillins Allergy Severe Nausea and Verified 09/05/24 22:55 Vomiting CODEINE (Generic Allergy) Allergy Severe Y Uncoded 01/06/22 17:35 1. CODIENE 2.PCN 3. BITH Allergy Unknown Nausea and Uncoded 01/06/22 17:35 CONTROLL PILLS Vomiting NKFA Allergy Unknown Unknown Uncoded 03/19/21 14:24 CONTRCEPTIVES Allergy Hives Uncoded 01/06/22 17:35 Review of Systems 2 Review of Systems: All systems reviewed & are unremarkable except as noted in HPI and below Constitutional: Constitutional: Reports no additional constitutional complaints Eyes: Eyes: Reports no additional eye complaints ENT: Reports system reviewed and no additional complaints, except as documented Cardiovascular: Cardiovascular: Reports no additional cardiovascular complaints Respiratory: Respiratory: Reports no additional respiratory complaints Gastrointestinal: Gastrointestinal: Reports no additional gastrointestinal complaints Genitourinary: Genitourinary: Reports no additional female genitourinary complaints Musculoskeletal: Musculoskeletal: Reports no additional musculoskeletal complaints Integumentary/Breasts: Skin/Breast: Reports system reviewed and no additional complaints, except as docu Neurologic: Reports system reviewed and no additional complaints, except as documented Psychiatric: Psychiatric: Reports no additional psychiatric complaints Endocrine: Endocrine: Reports no additional endocrine complaints Hematologic/Lymphatic: Hematologic/Lymphatic: Reports no additional hematologic/lymphatic complaints Allergic/Immunologic: Allergic/Immunologic: Reports no additional allergic/immunologic complaints PMFSH Past Medical History Medical History Seizures History of TIA (transient ischemic attack) Hypertension History of [place] (myocardial infarction) Surgical History Surgical History History of H/O: hysterectomy Family History Family History Mother Lung cancer, primary, with metastasis from lung to other site Father Breast cancer metastasized to brain Sibling DM2 (diabetes mellitus, type 2) Social History Social History Smoking packs per day: 1 Smoking cigarettes per day: 20.0 Years smoked: 39 Smoking pack-years: 39.00 Smoking status: Current every day smoker Tobacco type: cigarettes Second hand tobacco smoke exposure: Yes Alcohol intake: current Drinks per week: 2 Substance use: never Living arrangements: with family Gender identity (if verbalized by the patient): Female Spiritual care concerns: No Exam 2 Const: General: healthy appearing Nutritional Appearance: well nourished Orientation/consciousness: patient oriented x3 Limitations: no limitations HENMT: Head: normal to inspection Ears: external ears normal F jatinder/Nose/Sinus: Normal external nose present Eyes: Conjunctivae: conjunctivae normal Pupils: Equal, round and reactive pupils present EOM: EOMs intact bilaterally Neck: Neck: normal visual inspection Chest: Chest palpation & inspection: normal inspection of the chest Resp: Effort & Inspection: normal respiratory effort and not labored A uscultation: clear to auscultation bilaterally and no crackles Cardio: Rate: regular rate Rhythm: regular rhythm Heart sounds: no murmurs GI: Inspection: non-distended GI Palp: Yes Soft to palpation and No Tenderness to palpation present (GI) Auscultation: normal bowel sounds : General: Yes bladder normal to palpation Back/Spine/Pelvis: Back: no CVA tenderness Skin: General skin exam: normal color Rashes: no rashes Wounds: no wounds Neuro: General: patient oriented x3 Cranial nerves: Yes Nystagmus not present Speech: normal speech Gait exam (Neuro): Normal gait present O ther: fast exam is negative NIH score 0 [place] coma Score is 15 Extrem: General: normal to inspection Psych: Appearance: grossly normal Mental Status: mental status grossly normal Affect: normal affect Attitude: cooperative Course Vital Signs Vital signs: Vital Signs Temperature 36.5 C 09/05/24 22:48 Pulse Rate 107 H 09/05/24 22:48 Respiratory Rate 17 09/05/24 22:48 Blood Pressure 144/91 H 09/05/24 22:48 Pulse Oximetry 98 09/05/24 22:48 Oxygen Delivery Room Air 09/05/24 22:48 Temperature 36.5 C 09/05/24 22:48 Pulse Rate 107 H 09/05/24 22:48 Respiratory Rate 17 09/05/24 22:48 Blood Pressure 144/91 H 09/05/24 22:48 Pulse Oximetry 98 09/05/24 22:48 Oxygen Delivery Room Air 09/05/24 22:48 MDM - Seizure MDM Narrative Medical decision making narrative: patient is a 59-year-old female with seizure disorder having a breakthrough seizure this evening. We will do workup at this time. We will load her up with Keppra IV. We will look for secondary cause of seizure activity on medication. She has not missed medicine. patient has significant elevated alcohol level but she does have a ride home. Also magnesium and potassium will be replaced. She got Keppra IV. Lab Data Attestation: I reviewed the patient's lab results. 09/06/24 00:06 09/06/24 00:06 Labs: Lab Results 09/05/24 09/06/24 Range/Units 00:35 00:06 WBC 9.4 (4.8-10.8) K/mm3 RBC 4.27 (4.20-5.40) M/mm3 Hgb 14.8 (12.0-15.0) g/dL Hct 41.3 (35.0-49.0) % MCV 96.7 (78.0-102.0) fL MCH 34.7 H (27.0-31.0) pg MCHC 35.8 (32-36) g/dL RDW 12.4 (11.6-14.4) % Plt Count 260 (150-420) K/mm3 MPV 9.6 (9.2-11.8) fl Immature Gran % (Auto) 0.3 H (0.0-0.0) % Neut % (Auto) 50.2 (50.0-70.0) % Lymph % (Auto) 37.7 (18.0-42.0) % [place] % (Auto) 9.1 (2.0-11.0) % Eos % (Auto) 2.0 (1.0-6.0) % Baso % (Auto) 0.7 (0.0-1.0) % Lymph # (Auto) 3.53 (1.10-4.50) K/mm3 [place] # (Auto) 0.85 (0.10-0.90) K/mm3 Eos # (Auto) 0.19 (0.02-0.50) K/mm3 Baso # (Auto) 0.07 (0.00-0.10) K/mm3 Abs Immat Gran (auto) 0.03 H (0.00-0.00) K/mm3 Absolute Neuts (auto) 4.69 (1.70-7.20) K/mm3 Absolute Nucleated RBC 0.00 (0.00-0.00) K/mm3 Nucleated RBC % 0.0 (0-0.0) % Sodium 135 L (136-145) mmol/L Potassium 3.2 L (3.5-5.1) mmol/L Chloride 96 L (98-108) mmol/L Carbon Dioxide 28 (21-32) mmol/L Anion Gap 11 (4-12) mmol/L BUN 10 (7-18) mg/dL Creatinine 0.94 (0.55-1.02) mg/dL Estim Creat Clear Calc 49 ml/min Estimated GFR > 60 (59 - ) Glucose 113 H (70-99) mg/dL Calculated Osmolality 280 L (285-295) mOsm/kg Lactic Acid 1.8 (0.4-2.0) mmol/L Calcium 9.8 (8.5-10.1) mg/dL Magnesium 1.5 L (1.8-2.4) mg/dL Total Bilirubin 0.3 (0.00-1.00) mg/dL AST 23 (15-37) U/L ALT 31 (14-59) U/L Alkaline Phosphatase 124 H (46-116) U/L Total Creatine Kinase 62 (26-192) U/L Total Protein 7.7 (6.4-8.2) g/dL Albumin 4.0 (3.4-5.0) g/dL Urine Color Light yellow (Yellow) Urine Appearance Clear (Clear) Urine pH 6.0 (5.0-8.0) Ur Specific [place] <= 1.005 L (1.010-1.020) Urine Protein Negative (Negative) Urine Glucose (UA) Negative (Negative) Urine Ketones Negative (Negative) Ur Blood (Man) 1+ H (Negative) Urine Nitrate Negative (Negative) Urine Bilirubin Negative (Negative) Urine Urobilinogen 0.2 (0.2-1.0) mg/dL Leukocyte Esterase Rfl Negative (Negative) BRAD/UL Urine RBC 0-2 (0-2) /hpf Urine WBC 0-3 (0-3) /hpf Ur Squamous Epith Cells Rare (Few) /hpf Urine Bacteria None seen (None) /hpf Urine Opiates Screen Negative (Negative) Urine Methadone Screen Negative (Negative) Ur Barbiturates Screen Negative (Negative) Ur Phencyclidine Scrn Negative (Negative) Ur Amphetamine Screen Negative (Negative) U Benzodiazepines Scrn Negative (Negative) Urine Cocaine Screen Negative (Negative) U Cannabinoids Screen Negative (Negative) Ethyl Alcohol 203 H* (0-6) mg/dL Imaging Data Attestation: I personally reviewed and interpreted this imaging study as follows: Radiologist's impression: CT scan of the head was negative for acute process chest x-ray was negative for acute process ECG Data EKG #1: Attestation: I personally reviewed and interpreted this ECG as follows: ECG completion date: 09/06/24 ECG completion time: 01:03 EKG Interpretation: normal rate, sinus rhythm, no ectopy, no ST changes, normal QRS, normal QT and NL axis Discharge Plan Discharge Clinical Impression: Breakthrough seizure, Moderate alcohol consumption Patient Disposition: Home, Self-Care Condition: Stable Instructions: Epilepsy (ED) Additional Instructions: please follow-up with the primary doctor and the neurologist in the next week. You will need further medication adjustments with the specialist of Neurology. Please monitor your alcohol consumption which may lower your seizure threshold and allow breakthrough of seizures. Patient Language: Dutch Prescriptions: No Action pravastatin 20 mg tablet 20 mg PO DAILY metoprolol succinate 25 mg tablet extended release 24 hr 50 mg PO DAILY irbesartan-hydrochlorothiazide 300-12.5 mg tablet 1 tablet PO DAILY Briviact 75 mg tablet 75 mg PO BID Qty: 120 0RF Briviact 75 mg tablet 75 mg PO BID Qty: 60 0RF oxcarbazepine 150 mg tablet 150 mg PO DAILY Follow-up/Referrals: Demarcus Li MD [Primary Care Provider] - Time of Disposition: 01:05
--- NOTE | 2024-09-05 23:39 | ECG_ITS ---
Test Date: 2024-09-06 00:01:47 Measurements Intervals [place] Rate: 85 P: 38 RI: 179 QRS: 58 QRSD: 96 T: 43 QT: 366 QTc: 437 Interpretive Statements SINUS RHYTHM No previous ECG available for comparison Electronically Signed On 09-06-2024 22:51:30 CLINIC LICENSED PRACTICAL NURSE by Vanessa Mcdaniel M.D.
[2024-09-06] MEDS: levETIRAcetam 1000MG/NACL100ML 1,000 MG/100 ML BAG 400 MG IVPB (00:08)
[2024-09-06 00:12] LABS: Basophils Absolute Auto 0.07 K/mm3 (0.00-0.10); Basophils Percent Auto 0.7 % (0.0-1.0); Eosinophils Absolute Auto 0.19 K/mm3 (0.02-0.50); Hematocrit 41.3 % (35.0-49.0); Hemoglobin 14.8 g/dL (12.0-15.0); Immature Granulocyte Absolute 0.03 K/mm3 (0.00-0.00); Immature Granulocyte Percent A 0.3 % (0.0-0.0); Lymphocytes Absolute Auto 3.53 K/mm3 (1.10-4.50); Lymphocytes Percent Auto 37.7 % (18.0-42.0); Mean Corpuscular HGB Conc 35.8 g/dL (32-36); Mean Corpuscular Hemoglobin 34.7 pg (27.0-31.0); Mean Corpuscular Volume 96.7 fL (78.0-102.0); Mean Platelet Volume 9.6 fl (9.2-11.8); Monocytes Absolute Auto 0.85 K/mm3 (0.10-0.90); Monocytes Percent Auto 9.1 % (2.0-11.0); Neutrophils Absolute Auto 4.69 K/mm3 (1.70-7.20); Neutrophils Percent Auto 50.2 % (50.0-70.0); Platelet Count Result 260 K/mm3 (150-420); Red Blood Count 4.27 M/mm3 (4.20-5.40); Red Cell Distribution Width 12.4 % (11.6-14.4); White Blood Count 9.4 K/mm3 (4.8-10.8)
[2024-09-06 00:35] LABS: Alanine Aminotransferase 31 U/L (14-59); Alkaline Phosphatase 124 U/L (46-116); Anion Gap 11 mmol/L (4-12); Aspartate Amino Transferase 23 U/L (15-37); Bilirubin,Total 0.3 mg/dL (0.00-1.00); Blood Urea Nitrogen 10 mg/dL (7-18); Calcium 9.8 mg/dL (8.5-10.1); Carbon Dioxide 28 mmol/L (21-32); Chloride 96 mmol/L (98-108); Creatine Kinase 62 U/L (26-192); Estimated CRCL calculation 49 ml/min; Estimated Glomerular Filt Rate > 60; Glucose 113 mg/dL (70-99); Magnesium 1.5 mg/dL (1.8-2.4); Osmolality Calculated 280 mOsm/kg (285-295); Potassium 3.2 mmol/L (3.5-5.1); Sodium 135 mmol/L (136-145); Total Protein 7.7 g/dL (6.4-8.2)
[2024-09-06 00:36] LABS: Lactic Acid Reflex 1.8 mmol/L (0.4-2.0)
[2024-09-06 00:40] VITALS: BP 140/90; O2SAT 97
[2024-09-06 00:40] LABS: Ethanol 203 mg/dL (0-6)
[2024-09-06 00:43] LABS: Add Urine Microscopic? YES; Appearance Urine Clear (Clear); Bilirubin Urine Negative (Negative); Blood Urine 1+ (Negative); Color Urine Light Yellow (Yellow); Glucose Urine UA Negative (Negative); Ketones Urine Negative (Negative); Leukocyte Esterase Ur Negative LEU/UL (Negative); Nitrate Urine Negative (Negative); Protein Urine Negative (Negative); Specific Grav Ur <= 1.005 (1.010-1.020); Urobilinogen Urine 0.2 mg/dL (0.2-1.0)
[2024-09-06 00:45] VITALS: O2SAT 97
[2024-09-06 00:49] LABS: Bacteria Urine None seen /hpf; RBC Urine 0-2 /hpf (0-2); Squamous Epithelial Cell Urine Rare /hpf (Few); WBC Urine 0-3 /hpf (0-3)
[2024-09-06 00:52] LABS: Amphetamine Screen Urine Negative (Negative); Barbiturate Screen Urine Negative (Negative); Benzodiazepines Screen Urine Negative (Negative); Cannabinoid Screen Urine Negative (Negative); Cocaine Screen Urine Negative (Negative); Methadone Screen Urine Negative (Negative); Opiate Screen Urine Negative (Negative); Phencyclidine Screen Urine Negative (Negative)
[2024-09-06 01:00] VITALS: BP 140/89; O2SAT 100
[2024-09-06 01:15] VITALS: O2SAT 99
[2024-09-06] MEDS: MAGNESIUM OXIDE 400 MG TABLET 800 MG PO (01:16)
[2024-09-06] MEDS: POTASSIUM CHLORIDE 20 MEQ ER TABLET 40 MEQ PO (01:16)
== END 2024-09-06 01:41 | disposition home or self-care (01) ==
PROVIDERS: Emergency Provider Emergency Medicine; PCP Family Medicine
DX: G40.909 Epilepsy, unspecified, not intractable, without status epilepticus (principal); I10 Essential (primary) hypertension; I25.2 Old myocardial infarction; Z86.73 Personal history of transient ischemic attack (TIA), and cerebral infarction without residual deficits; F17.210 Nicotine dependence, cigarettes, uncomplicated; F10.90 Alcohol use, unspecified, uncomplicated
CPT/HCPCS: 36415; 70450; 71046; 80053; 80307; 81001; 82077; 82550; 83605; 83735; 85025; 93005; 96374; 99284; A9270; J1953

== ENCOUNTER 2024-11-10 10:24 | Outpatient (CLI) | payer OTHER, SELFPAY ==
[2024-11-10 10:45] LABS: Basophils Absolute Auto 0.08 K/mm3 (0.00-0.10); Basophils Percent Auto 0.9 % (0.0-1.0); Eosinophils Absolute Auto 0.16 K/mm3 (0.02-0.50); Eosinophils Percent Auto 1.8 % (1.0-6.0); Hematocrit 42.4 % (35.0-49.0); Hemoglobin 14.1 g/dL (12.0-15.0); Immature Granulocyte Absolute 0.04 K/mm3 (0.00-0.00); Immature Granulocyte Percent A 0.4 % (0.0-0.0); Lymphocytes Absolute Auto 3.16 K/mm3 (1.10-4.50); Lymphocytes Percent Auto 35.1 % (18.0-42.0); Mean Corpuscular HGB Conc 33.3 g/dL (32-36); Mean Corpuscular Hemoglobin 32.2 pg (27.0-31.0); Mean Corpuscular Volume 96.8 fL (78.0-102.0); Mean Platelet Volume 9.3 fl (9.2-11.8); Monocytes Absolute Auto 0.66 K/mm3 (0.10-0.90); Monocytes Percent Auto 7.3 % (2.0-11.0); Neutrophils Percent Auto 54.5 % (50.0-70.0); Platelet Count Result 312 K/mm3 (150-420); Red Blood Count 4.38 M/mm3 (4.20-5.40); Red Cell Distribution Width 12.4 % (11.6-14.4)
[2024-11-10 11:09] LABS: Creatinine Urine 161.65 mg/dL (40-278); Microalbumin Urine Random 19.4 mg/L
[2024-11-10 11:13] LABS: Hemoglobin A1C 5.4 % (<5.7)
[2024-11-10 11:46] LABS: Alanine Aminotransferase 33 U/L (14-59); Albumin Level 3.7 g/dL (3.4-5.0); Alkaline Phosphatase 120 U/L (46-116); Anion Gap 8 mmol/L (4-12); Aspartate Amino Transferase 16 U/L (15-37); Bilirubin,Total 0.3 mg/dL (0.00-1.00); Blood Urea Nitrogen 20 mg/dL (7-18); Calcium 9.3 mg/dL (8.5-10.1); Carbon Dioxide 32 mmol/L (21-32); Chloride 102 mmol/L (98-108); Estimated Glomerular Filt Rate > 60; Glucose 99 mg/dL (70-99); Osmolality Calculated 296 mOsm/kg (285-295); Potassium 4.4 mmol/L (3.5-5.1); Sodium 142 mmol/L (136-145); Thyroid Stimulating Hormone 2.03 uIU/mL (0.36-3.74); Total Protein 7.4 g/dL (6.4-8.2)
--- OUTSIDE RECORDS SUMMARY | 2024-11-10 11:54 | XMS_ITS | Encounter Summary ---
Author Organization [facility] Address [address] [place] [address] Care Team Providers Care Oil Recovery Operator Name Role Phone Demarcus Li MD Primary Care Provider [phone] Daniel Bernard MD Unavailable Unavailabl Mamie South APRN, MANAGER OF MEDICAL-C Unavailable Ashley Price MD Unavailable Encounter Details Date Type Department Care Team (Late Contact Info) Description 03/13/2020 Abstract [facility] [address] [place] [id number] Daniel Bernard MD Social History Tobacco Use Types Packs/Day Years Used Date Smoking Tobacco: Every Day Smokeless Tobacco: Never Alcohol Use Standard Drinks/Week Comments Yes 3 (1 standard drink = 0.6 oz pur e alcohol) Comments Unknown Sex and Gender Information Value Date Recorded Sex Assigned at Not on file Legal Sex Female 1:36 AM CDT Gender Identity Not on file Sexual Orientation Not on file 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 [place] [address] [place] [address] Ashley Price MD [address] [place] [id number] 05/19/2025 10:00 AM CDT Office Visit [facility] [address] [place] [id number] Ashley Price MD [address] [place] [address] documented as of this encounter Visit Diagnoses Not on filedocumented in this encounter Additional Health Concerns Infection Onset Date Last Indicated Resolved Time COVID-19 Rule Out 10/05/2020 10/05/2020 10/06/2020 2:57 PM YOUTH CARE SPECIALIST documented as of this encounter Care Teams Oil Recovery Operator Relationship Specialty Start Date End Date Demarcus Li MD [address] [place] [address] PCP - General FAMILY PRACTICE 02/20/20 Daniel Bernard MD [address] [place] [address] Consulting Physician CARDIOVASCULAR DISEASE 02/20/20 Mamie Dey, COVER REMOVER, MANAGER OF MEDICAL-C [address] [facility] [address] [place] [address] NURSE PRACTITIONER 03/20/21 12/31/23 Ashley Price MD [address] [place] [address] Consulting Physician CARDIOVASCULAR DISEASE 01/01/24 documented as of this encounter
--- OUTSIDE RECORDS SUMMARY | 2024-11-10 11:54 | XMS_ITS | Data Portability ---
Author Organization [facility], [address] [place] [address] Neurology ([place]) Address [address] [place] [address] Assessment Encounter Date Assessment Date Assessment LastModified by Organization Details LastModified Time 04/11/2024 04/11/2024 ASSESSMENT AND PLAN: Jewels Langley is a 59-year-old female who returns for follow-up for seizure disorder with known history of generalized tonic-clonic seizures and history of frontal lobe infarction. At this point, I recommend we maintain Briviact 100 mg b.i.d. and will add zonisamide 50 mg b.i.d. to this. She has been counseled to watch for any risk for kidney stone formation. In addition to this, we will monitor for paresthesias and word finding difficulties. If she has any problems on the medication, she understands to call the office. I will see her back in 3 months. She has been requested to maintain seizure precautions including no driving, no operating heavy machinery, no climbing heights tub bathing, swimming or hot tubbing in the interim to next follow-up. I personally spent a total of 15 minutes on the patient on this date of service including both [id number] and [id number] e time excluding any separately reportable services. saw swoelfel Not available 04/11/2024 15:32:21 Plan of Treatment Reminders Order Date Submit Date Provider Last Modified By Organization Details Last Modified Time Details Appointments Establish ed Patient 15.EST 2024 09:45A M Dr. Marisela Ware Not available Not available Not available Lab None recorded. Referral None recorded. Procedures None recorded. Surgeries None recorded. Imaging None recorded. Medication Orders Briviact 100 mg tablet 2023 024 [facility] [place], [address], 04/11/2024 15:20:02 zonisamid e 50 mg capsule 2023 024 [facility] [place], [address], 06/13/2024 15:21:28 Patient TargetsNo targets recorded. Patient InstructionsNo instructions recorded. Reason for Referral None Reported. Results Created Date Observation Date Name Description Value Unit Range Abnormal Flag Note LastModifiedBy Organization Detail LastModifiedTime Result Notes None recorded. Problems Name Problem SNOMED Code Status Onset Date Resolution Date Notes Provider Name and Address Organization Details Recorded Time Seizure disorder 912160798 Active Micheline Klein [facility] 13:04:03 Problem Notes None recorded. Medical Equipment None Reported. Allergies Allergen ID Allergen Name Allergen Category Reaction Reaction Severity Criticality Documentation Date Start Date Code Code System Note Provider Name and Address Organization Details Recorded Time 6373413 Product containin g penicilli n (product) medicatio n Not available Not available Not available 10/07/20232018 53168 8001 SNOMED Not Available Not Available Not Available Medications Name Sig Start Date Stop Date Status Note LastModified by Organization Details LastModified Time atorvastati n 40 mg tablet active Not Available Not Available Not Available oxcarbazepi ne 150 mg tablet TAKE 1 TABLET TWICE A DAY BY ORAL ROUTE FOR 30 DAYS. 2024 active Not Available Not Available Not Avai lable metoprolol succinate ER 50 mg tablet,exte nded release 24 hr active Not Available Not Available Not Available zonisamide 100 mg capsule Take 1 capsule BID 06/13 completed Not Available Not Available Not Available irbesartan 300 mg-hydrochl orothiazide 12.5 mg tablet active Not Available Not Available Not Available zonisamide 50 mg capsule Take 1 capsule twice a day by oral route. 06/13 completed Not Available Not Available Not Available Briviact 100 mg tablet Take 1 tablet twice a day by oral route as directed for 90 days, for seizure disorder. 2024 active Not Available Not Available Not Avai lable Briviact 75 mg tablet TAKE 1 TABLET TWICE DAILY 06/27 completed Not Available Not Available Not Available Briviact 50 mg tablet 06/27 completed Not Available Not Available Not Available Vitals Date Recorded Body height Body mass index (BMI) Body weight Heart rate Respiratory rate Oxygen saturation Oxygen saturation in Arterial blood by Pulse oximetry Systolic blood pressure Diastolic blood pressure Provider Name and Address Organization Details Last Updated DateTime 172.72 cm 18.4 kg/m2 17666.0 4 g 100 /min 18 /min 97 % 97 % 120 mm[Hg] 80 mm[Hg] [facility] 14:56:19 Social History None recorded. Functional Status None recorded. Mental Status None recorded. Family History Nothing Reported. Medical History No medical history recorded. Gynecological HistoryNo gynecological history recorded. Obstetrics History GPAL:G 0 P 0 0 0 0 Past Encounters Encounter ID Performer Location Encounter Start Date Encounter Closed Date Diagnosis/Indication Diagnosis SNOMED-CT Code Diagnosis ICD10 Code Diagnosis Note [id number] Viviana Lomas MD [facility] Neurology ([place]) [address] [place] [phone] 04/11/2024 14:47:35 04/13/2024 09:00:41 Seizure disorder 708234843 G40.909 History of cerebrovascular accident 302328695 Z86.73 Long-term drug therapy 854144023 Z79.899 Health Concerns Section Related Observation LastModified by Organization Detai ls LastModified Time None Recorded Concern Status LastModified by Organization Details LastModified Time None Recorded Advance Directives Directive None Recorded Payers Encounter Date Sequence Insurance Name Policy Number Policy Hagan Covered Member ID Hagan Member ID Guarantor Name 04/11/2024 1 [employer] [facility] [facility] ON OR AFTER 08/07/2020 (MEDICAID REPLACEMENT - HMO) Jewels Langley [id number] Jewels Langley Notes Date Note Type Note Provider Name and Address Organization Details Recorded Time 04/11/2024 text/html Jewels Langley is a 59-year-old female who returns for follow-up for seizure disorder with known history of generalized tonic-clonic seizures and history of frontal lobe infarction. In the interim since I last saw her, we titrated her up to 100 mg Briviact twice daily. Despite this, she still had recurrence of event. On March 29, 2024 she was reported per her to be convulsing in sleep. This was observed upwards to 10 minutes. She was described to be stiff with shaking as if she was attempting to hit herself in the face. She did not get much beyond for history of this. She was not woken from sleep to notify she had an event. She woke the next morning with an overall sense of whole body soreness and headache. There was no urinary or bowel incontinence or tongue biting with this event. She has not missed any doses of Briviact and is tolerating the medication well. She does not report any triggers such as alcohol, infection or sleep deprivation. Viviana Lomas MD [address] [facility], [place], [address], [place] [facility] 04/12/2024 11:57:27 OBGyn Episode No OBEpisode recorded.
--- OUTSIDE RECORDS SUMMARY | 2024-11-10 11:54 | XMS_ITS | Clinical Summary ---
Author Organization [facility] Address [facility] [place] [address] Care Team Providers Care Wheel Buffer Name Role Phone Demarcus Li MD Primary Care Provider [phone] Ashley Price MD Unavailable Allergies Active Allergy Reactions Criticality Noted Date Comments Codeine Unknown 02/15/2016 Penicillins Unknown 02/15/2016 Medications NICOTINE 14 MG/24HR PLACE 1 PATCH (14 MG TOTAL) ONTO THE SKIN DAILY 28 patch 5 11/08/2020 Active BRIVIACT 50 MG tablet 02/19/2023 Active metoprolol succinate ER (TOPROL-XL) 50 MG 24 hr tablet Take 1.5 tablets (75 mg total) by mouth daily. 180 tablet 3 05/17/2024 Active Irbesartan-hydr oCHLOROthiazide 300-12.5 MG Tab Take 0.5 tablets by mouth daily. 90 tablet 3 05/17/2024 Active atorvastatin (LIPITOR) 40 MG tablet Take 1 tablet (40 mg total) by mouth nightly at bedtime. 90 tablet 3 05/17/2024 Active Active Problems Problem Noted Date Diagnosed Date Syncope and collapse 06/15/2020 CAD (coronary artery disease) 06/15/2020 Essential hypertension 06/15/2020 Mixed hyperlipidemia 06/15/2020 Seizures ([facility]) 06/15/2020 Tobacco abuse 06/15/2020 Family History Medical History Relation Comments Diabetes Brother CVA Father Cancer Father Hypertension Father [place] Father Relation Status Comments Brother Father Social History Tobacco Use Types Packs/Day Years Used Date Smoking Tobacco: Every Day Cigarettes Smokeless Tobacco: Never Alcohol Use Standard Drinks/Week Comments Yes 0 (1 standard drink = 0.6 oz pur e alcohol) socially AUDIT-C Answer Date Recorded Q1: How often do you have a drink containing alcohol? 4 or more times a week 05/03/2020 Q2: How many drinks containi ng alcohol do you have on a typical day when you are drinking? 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 Not on file Not on file Not on file Last Filed Vital Signs Vital Sign Reading Time Taken Comments Blood Pressure 105/64 05/17/2024 8:16 AM CDT Pulse 88 05/17/2024 8:16 AM CDT Temperature 35.2 C (95.4 F) 10/08/2020 8:54 AM [employer] Respiratory Rate 16 05/17/2024 8:16 AM CDT Oxygen Saturation 100% 05/17/2024 8:16 AM CDT Inhaled Oxygen Concentration - - Weight 54.4 kg (120 lb) 05/17/2024 8:16 AM CDT Height 172.7 cm (5' 8 ) 05/17/2024 8:16 AM CDT Body Mass Index 18.25 05/17/2024 8:16 AM CDT Plan of Treatment Upcoming Encounters Date Type Department Care Team (Late st Contact Info) Description 05/09/2025 9:00 AM CDT Appointment [facility] [address] [place] [address] Ashley Price MD [address] [place] [id number] 05/19/2025 10:00 AM CDT Office Visit [facility] [address] [place] [phone] Ashley Price MD [address] [place] [address] Health Maintenance Due Date Last Done Comments Colorectal Cancer Screening Colonoscopy (10 Years) 1966 Annual Physical 1969 Pneumococcal Vaccine: Pediatrics (0 to 5 Years) and At-Risk Patients (6 to 64 Years) (1 of 2 - PCV) 1972 Hepatitis C 1984 DTaP, Tdap and Td Vaccines ( 1 - Tdap) 1985 Hepatitis B Vaccines (1 of 3 - 19+ 3-dose series) 1985 Mammogram Screening 2006 Zoster Vaccines (1 of 2) 2016 ASCVD LDL 01/28/2024 01/27/2023, 07/28/2022, 10/08/2020 COVID-19 Vaccine (1 - 2023-2 5 season) 2024 Influenza Adult (#1) 2024 Meningococcal B Vaccine Aged Out No l onger eligible based on patient's age to complete this topic Meningococcal Vaccine Aged Out No lexis khushi eligible based on patient's age to complete this topic RSV Immunizations Under 20 Months Aged Out No longer eligible b ased on patient's age to complete this topic Procedures Procedure Name Priority Date/Time Associated Diagnosis Comments LIPID PANEL Routine 01/27/2023 11:55 AM CDT Epilepsy, unspecified, not intractable, without status epilepticus ([facility]) Cerebral infarction, unspecified ([facility]) from Last 3 Months or Most Recently Relevant to Health Maintenance Results * (ABNORMAL) LIPID PANEL (01/27/2023 11:55 AM CDT) CHOLESTEROL 281(H) <200 MG/DL 01/27/2023 2:27 PM CDT [facility] Comment: THE NATIONAL LIPID ASSOCIATION AND THE NATIONAL CHOLESTEROL EDUCATION PROGRAM (NCEP) HAVE SET THE FOLLOWING GUIDELINES FOR TOTAL CHOLESTEROL IN ADULTS AGES 18 AND UP. DESIRABLE: <200 BORDERLINE HIGH: 200-239 HIGH: > OR = 240 TRIGLYCERIDES 370(H) <150 MG/DL 01/27/2023 2:27 PM CDT [facility] Comment: THE NATIONAL LIPID ASSOCIATION AND THE NATIONAL CHOLESTEROL EDUCATION PROGAM (NCEP) HAVE SET THE FOLLOWING GUIDELINES FOR TRIGLYCERIDES IN ADULTS AGES 18 AND UP. NORMAL: <150 BORDERLINE HIGH: 150 TO 199 HIGH: 200 TO 499 VERY HIGH: >499 HDL 55 >49 MG/DL 01/27/2023 2:27 PM CDT [facility] Comment: THE NATIONAL LIPID ASSOCIATION AND THE NATIONAL CHOLESTEROL EDUCATION PROGAM (NCEP) HAVE SET THE FOLLOWING GUIDELINES FOR HDL CHOLESTEROL IN ADULTS AGES 18 AND UP. MALES: >39 FEMALES: >49 LDL-C 152(H) <100 MG/DL 01/27/2023 2:27 PM CDT [facility] Comment: THE NATIONAL LIPID ASSOCIATION AND THE NATIONAL CHOLESTEROL EDUCATION PROGAM (NCEP) HAVE SET THE FOLLOWING GUIDELINES FOR LDL CHOLESTEROL IN ADULTS AGES 18 AND UP. DESIRABLE: <100 ABOVE DESIRABLE: 100 TO 129 BORDERLINE HIGH: 130 TO 159 HIGH: 160 TO 189 VERY HIGH: >189 VLDL CALCULATION 74 MG/DL 01/28/20 2:27 PM CDT [facility] Comment:REFERENCE RANGE NOT ESTABLISHED CHOL/HDL RATIO 5.1 01/27/2023 2:27 PM CDT [facility] Comment:REFERENCE RANGE NOT ESTABLISHED LDL/HDL 2.8 01/27/2023 2:27 PM CDT [facility] Comment:REFERENCE RANGE NOT ESTABLISHED NON HDL CHOLESTEROL 226 MG/DL 01/27/2023 2:27 PM CDT [facility] Comment:REFERENCE RANGE NOT ESTABLISHED 01/27/2023 11:5 5 AM CDT us Taco Lemus NP LABORATORY Final Result [facility] [address] [place] [address], from Last 3 Months or Most Recently Relevant to Health Maintenance Insurance [employer] Advance Directives * Full Code (Latest Code Status on File) Date Activated Date Inactivated Comments 10/08/2020 12:26 PM 10/08/2020 4:04 PM Care Teams Wheel Buffer Relationship Specialty Start Date End Date Demarcus Li MD [address] [place] [address] PCP - General FAMILY PRACTICE 02/20/20 Ashley Price MD [address] [place] [address] Consulting Physician CARDIOVASCULAR DISEASE 01/01/24
== END 2024-11-10 10:25 | disposition home or self-care (01) ==
PROVIDERS: PCP Family Medicine; Visit Provider Family Medicine
DX: I10 Essential (primary) hypertension (principal); R73.9 Hyperglycemia, unspecified
CPT/HCPCS: 36415; 80053; 82043; 83036; 84443; 85025

== ENCOUNTER 2025-03-11 15:28 | Emergency (ER) | payer OTHER, SELFPAY ==
--- NOTE | ~2025-03-11 | XR_ITS ---
EXAM: XR ankle LT min 3V, XR foot LT min 3V DATE: 03/11/2025 16:30 HISTORY: Injury, twisted Lt. ankle. Lateral pain swelling x1 day . COMPARISON: None available. FINDINGS: Decreased mineralization. Mildly displaced, angulated, and comminuted fracture of the dist al left fifth metatarsal. No lytic or blastic lesion. Achilles and plantar enthesopathy. No erosion o r periosteal change. Soft tissues within normal limits. IMPRESSION: Mildly displaced, angulated, and comminuted fracture of the distal left fifth metatarsal. Reviewed, dictated and finalized at location K. IMPRESSION: Mildly displaced, angulated, and comminuted fracture of the distal left fifth metatarsal.
[2025-03-11 15:28] VITALS: BP 142/97; PULSE 114; RESP 16; TEMP 36.2; O2SAT 100
--- OUTSIDE RECORDS SUMMARY | 2025-03-11 15:30 | XMS_ITS | Data Portability ---
Author Organization [facility] CLI COUNTS INCLUDE 234 BEDS AT THE [facility], [address] [place] [address] ([place]) Address [address] [address] Assessment Encounter Date Assessment Date Assessment LastModified [...] on this date of service including both vitj-mw-oioe and mlu-lsfp-aw-face time excluding any separately reportable services. saw [email or web address] Not available 04/11/2024 15:32:21 01/25/2025 01/25/2025 The patient most likely has complex partial epilepsy. Her last breakthrough seizure was in August, but she had missed her Briviact for 2 days prior to the seizure. We therefore will not make any changes at this time. We will continue Briviact 100 mg b.i.d. and oxcarbazepine 150 mg b.i.d. We will check a CBC, CBC and oxcarbazepine level. We also discussed osteoporosis. She will start calcium with vitamin D. She will follow up in 6 months in my clinic in [place]. I personally spent a total of 40 minutes on the patient on this date of service including both lxac-mz-lpiv and saw-wvqa-fb-face time excluding any separately reportable services. K Addendum: I reviewed the [place] [facility] [place] [facility] [facility]. The EKG showed sinus rhythm. White blood cell count was normal at 9.4. Lactic acid was normal at 1.8. Alcohol level was 203 mg/dL. Urinalysis was negative. Alk phos was slightly elevated at 124. CT scan of the head without contrast did not show any acute intracranial findings. [email or web address] Not available 01/26/2025 18:42:25 Plan of Treatment Reminders Order Date Submit Date Provider Last Modified By Organization Details Last Modified Time Details Appointments Establish ed Patient 15.EST 2024 10:00A M Dr. Marisela Ware Not available Not available Not available Lab CMP, serum or plasma 2024 025 [facility], [address] [place] [address], [id number], 01/25/2025 13:39:15 CBC w/ auto diff 2024 025 [facility], [address] [place] [address], [id number], 01/25/2025 13:00:08 oxcarbaze pine, serum 2024 025 [facility], [address] [place] [address], [address], 01/30/2025 21:09:46 Referral None recorded. Procedures None recorded. Surgeries None recorded. Imaging None recorded. Medication Orders Briviact 100 mg tablet 2024 025 [email or web address] [facility] [address] [place] [address], [place], [address], 01/25/2025 11:33:46 oxcarbaze pine 150 mg tablet 2024 025 MAR[facility], [address] [facility] [address], [place], [address], 01/25/2025 11:20:58 Briviact 100 mg tablet 2023 024 MARIAM [facility], [address] [facility] [address], [place], [address], 04/11/2024 15:20:02 zonisamid e 50 mg capsule 2023 024 [email or web address] [facility], [address] [facility] [address], [place], [address], 06/13/2024 15:21:28 Patient TargetsNo targets recorded. Patient Instructions Encounter Date Encounter Id Patient Instructions Last Modified By Organization Details Last Modified Time 01/25/2025 [id number] I recommend calcium with vitamin D. Antiepileptic medications predispose to osteoporosis after prolonged use. The patient expressed understanding. [email or web address] Not available 01/25/2025 11:18:45 Reason for Referral None Reported. Results Created Date Observation Date Name Description Value Unit Range Abnormal Flag Note LastModifiedBy Organization Detail LastModifiedTime 01/26/2001/25/2025 CBC w/ auto diff CBC with differential Not Available [facility] [address] [place] [address], [address], 01/25/2025 13:00:08 01/26/20 25 01/25/2025 CBC w/ auto diff WBC 9.1 K/uL 3.8-11 .2 Not Available [facility] [address] [place] [address], [address], 01/25/2025 13:00:08 01/26/20 25 01/25/2025 CBC w/ auto diff RBC 4.62 M/uL 3.92-5 .10 Not Available [facility] [address] [place] [address], 95[address], 01/25/2025 13:00:08 01/26/20 25 01/25/2025 CBC w/ auto diff HGB 14.9 g/dL 11.8-1 5.3 Not Available [facility] [address] [place] [address], 78[address], 01/25/2025 13:00:08 01/26/20 25 01/25/2025 CBC w/ auto diff HCT 44.3 % 36.5-4 4.8 Not Available [facility] [address] [place] [address], 37671, 01/25/2025 13:00:08 01/26/20 25 01/25/2025 CBC w/ auto diff MCV 95.9 fL 80.0-9 9.0 Not Available [facility] [address] [place] [address], [address], 01/25/2025 13:00:08 01/26/20 25 01/25/2025 CBC w/ auto diff MCH 32.3 pg 25.5-3 3.6 Not Available [facility] [address] [place] [address], 6[address], 01/25/2025 13:00:08 01/26/20 25 01/25/2025 CBC w/ auto diff MCHC 33.6 g/dL 32.0-3 6.0 Not Available [facility] [address] [place] [address], 78329, 01/25/2025 13:00:08 01/26/20 25 01/25/2025 CBC w/ auto diff RDW-SD 49.8 fL 35.1 - 46.3 high Not Available [facility] [address] [place] [address], 756[address], 01/25/2025 13:00:08 01/26/20 25 01/25/2025 CBC w/ auto diff plt 279 K/uL 130-40 0 Not Available [facility] [address] [place] [address], 08273, 01/25/2025 13:00:08 01/26/20 25 01/25/2025 CBC w/ auto diff MPV 10.5 fL 9.3-12 .8 Not Available [facility] [address] [place] [address], 264[address], 01/25/2025 13:00:08 01/26/20 25 01/25/2025 CBC w/ auto diff tere% 58.4 % not estab Not Available [facility] [address] [place] [address], 31668, 01/25/2025 13:00:08 01/26/20 25 01/25/2025 CBC w/ auto diff lym% 30.9 % not estab Not Available [facility] [address] [place] [address], 86[address], 01/25/2025 13:00:08 01/26/20 25 01/25/2025 CBC w/ auto diff mono% 7.8 % not estab Not Available [facility] [address] [place] [address], 6[address], 01/25/2025 13:00:08 01/26/20 25 01/25/2025 CBC w/ auto diff eos% 1.8 % not estab Not Available [facility] [address] [place] [address], 626[address], 01/25/2025 13:00:08 01/26/20 25 01/25/2025 CBC w/ auto diff baso% 0.8 % not estab Not Available [facility] [address] [place] [address], 39608, 01/25/2025 13:00:08 01/26/20 25 01/25/2025 CBC w/ auto diff abs tere 5.3 K/uL 1.8-7. 5 Not Available [facility] [address] [place] [address], 15[address], 01/25/2025 13:00:08 01/26/20 25 01/25/2025 CBC w/ auto diff abs lym 2.8 K/uL 1.1-3. 3 Not Available [facility] [address] [place] [address], 926[address], 01/25/2025 13:00:08 01/26/20 25 01/25/2025 CBC w/ auto diff abs mono 0.7 K/uL 0.1-1. 0 Not Available [facility] [address] [place] [address], 12865, 01/25/2025 13:00:08 01/26/20 25 01/25/2025 CBC w/ auto diff abs eos 0.2 K/uL 0.0-0. 7 Not Available [facility] [address] [place] [address], 770[address], 01/25/2025 13:00:08 01/26/20 25 01/25/2025 CBC w/ auto diff abs baso 0.1 K/uL 0.0-0. 2 Not Available [facility] [address] [place] [address], 83138, 01/25/2025 13:00:08 01/26/20 25 01/25/2025 CBC w/ auto diff imm. gran % 0.3 % 0-5 Not Available [facility] [address] [place] [address], 46[address], 01/25/2025 13:00:08 01/26/20 25 01/25/2025 CBC w/ auto diff NRBC % 0.0 % 0.0-0. 2 Not Available [facility] [address] [place] [address], 44[address], 01/25/2025 13:00:08 01/26/20 25 01/25/2025 CMP, serum or plasm a comp. met. panel Not Available [facility] [address] [place] [address], 26378, 01/25/2025 13:39:15 01/26/20 25 01/25/2025 CMP, serum or plasm a sodium 139 mmol/ L 136-14 6 Not Available [facility] [address] [place] [address], 65513, 01/25/2025 13:39:15 01/26/20 25 01/25/2025 CMP, serum or plasm a potassium 4.5 mmol/ L 3.5-5. 1 Not Available [facility] [address] [place] [address], 34847, 01/25/2025 13:39:15 01/26/20 25 01/25/2025 CMP, serum or plasm a chloride 105 mmol/ L 98-110 Not Available [facility] [address] [place] [address], 33963, 01/25/2025 13:39:15 01/26/20 25 01/25/2025 CMP, serum or plasm a CO2 31 mEq/L 20-32 Not Available [facility] [address] [place] [address], 28956, 01/25/2025 13:39:15 01/26/20 25 01/25/2025 CMP, serum or plasm a anion gap 8 mmol/ L 10-22 low Not Available [facility] [address] [place] [address], 67547, 01/25/2025 13:39:15 01/26/20 25 01/25/2025 CMP, serum or plasm a glucose 100 mg/dL 70-100 Not Available [facility] [address] [place] [address], 26754, 01/25/2025 13:39:15 01/26/20 25 01/25/2025 CMP, serum or plasm a calcium 9.8 mg/dL 8.4-10 .4 Not Available [facility] [address] [place] [address], 71002, 01/25/2025 13:39:15 01/26/20 25 01/25/2025 CMP, serum or plasm a total protein 7.8 g/dL 6.4-8. 3 Not Available [facility] [address] [place] [address], 58660, 01/25/2025 13:39:15 01/26/20 25 01/25/2025 CMP, serum or plasm a albumin 5.0 g/dL 3.5-5. 3 Not Available [facility] [address] [place] [address], 41341, 01/25/2025 13:39:15 01/26/20 25 01/25/2025 CMP, serum or plasm a ALP 134 U/L 44 - 127 high Not Available [facility] [address] [place] [address], 84715, 01/25/2025 13:39:15 01/26/20 25 01/25/2025 CMP, serum or plasm a AST (SGOT) 30 U/L 10-40 Not Available [facility] [address] [place] [address], 27942, 01/25/2025 13:39:15 01/26/20 25 01/25/2025 CMP, serum or plasm a total bilirubin 0.5 mg/dL 0.2-1. 2 Not Available [facility] [address] [place] [address], 74063, 01/25/2025 13:39:15 01/26/20 25 01/25/2025 CMP, serum or plasm a ALT (SGPT) 27 U/L 8-35 Not Available [facility] [address] [place] [address], 90241, 01/25/2025 13:39:15 01/26/20 25 01/25/2025 CMP, serum or plasm a BUN 10 mg/dL 7-21 Not Available [facility] [address] [place] [address], 13295, 01/25/2025 13:39:15 01/26/20 25 01/25/2025 CMP, serum or plasm a creatinine 0.7 mg/dL 0.7-1. 3 Not Available [facility] [address] [place] [address], 22516, 01/25/2025 13:39:15 01/26/20 25 01/25/2025 CMP, serum or plasm a CKD-epi GFR 100 eGFR was calcu lated using the 2020 CKD-E PI equat ion. (Machine Sander dottie Kidne y Disea se has an eGFR less than 60 mL/mi n/1.7 3mm for a perio d of three month s or more. ) This calcu latio n has not been valid ated for patie nt ages <18 or >90 years old. Not Available [facility] [address] [place] [address], 37646, 01/25/2025 13:39:15 01/26/20 25 01/30/2025 oxcar bazep ine, serum oxcarbazepin e(trileptal) 10 ug/mL 10-35 This test was iram villalobos and its perfo rmanc e britany cteri stics deter mined by [facility]. It has not been clear ed or appro saima by the Food and Drug Admin istra tion. Detec tion Limit = 1 Not Available [facility] [address] [place] [address], 24283, 01/30/2025 21:09:46 Result Notes None recorded. Problems Name Problem SNOMED Code Status Onset Date Resolution Date Notes Provider Name and Address Organization Details Recorded Time Seizure disorder 959947461 Active 024 Micheline mcnally [facility] 4 13:04:03 Problem Notes None recorded. Medical Equipment None Reported. Allergies Allergen ID Allergen Name Allergen Category Reaction Reaction Severity Criticality Documentation Date Start Date Code Code System Note Provider Name and Address Organization Details Recorded Time 5634441 Product containin g penicilli n (product) medicatio n Not available Not available Not available 10/07/20232018 16689 8001 SNOMED Not Available [facility] 4 04:34:16 Medications Name Sig Start Date Stop Date Status Note LastModified by Organization Details LastModified Time atorvastati n 40 mg tablet active Not Available Not Available Not Available oxcarbazepi ne 150 mg tablet Take 1 tablet twice a day by oral route for 90 days. 2024 active Not Available Not Available Not [...] Not Available Vitals Date Recorded Body height Heart rate Oxygen saturation Oxygen saturation in Arterial blood by Pulse oximetry Systolic And Diastolic Provider Name and Address Organization Details Last Updated DateTime 5 172.72 cm 98 /min 99 % 99 % 122/78 mm[Hg] [facility] 5 10:40:33 Date Recorded Body height Body mass index (BMI) Body weight Heart rate Respiratory rate Oxygen saturation Oxygen saturation in Arterial blood by Pulse oximetry Systolic And Diastolic Provider Name and Address Organization Details Last Updated DateTime 4 172.72 cm 18.4 kg/m2 03235.0 4 g 100 /min 18 /min 97 % 97 % 120/80 mm[Hg] [facility] 4 14:56:19 Social History None recorded. Functional Status None recorded. Mental Status None recorded. Family History Nothing Reported. Medical History No medical history recorded. Gynecological HistoryNo gynecological history recorded. Obstetrics History GPAL:G 0 P 0 0 0 0 Past Encounters Encounter ID Performer Location Encounter Start Date Encounter Closed Date Diagnosis/Indication Diagnosis SNOMED-CT Code Diagnosis ICD10 Code Diagnosis Note [id number] Viviana Lomas MD [facility] ([place]) [address] [place] [address] 04/11/2024 14:47:35 04/13/2024 09:00:41 Seizure disorder 251074000 G40.909 History of cerebrovascular accident 031652291 Z86.73 Long-term drug therapy 700744762 Z79.899 [id number] Marisela Ware MD [address] [place] [address] Neurology ([place]) [address] [place] [phone] 01/25/2025 10:24:00 01/25/2025 11:20:42 Seizure disorder 829966972 G40.909 Therapeuti c drug monitoring assay 67382040 Z51.81 Long-term current use of drug therapy 918123125 Z79.899 Health Concerns Section Related Observation LastModified by Organization Detai ls LastModified Time None Recorded Concern Status LastModified by Organization Details LastModified Time None Recorded Advance Directives Directive None Recorded Payers Insurance Date Sequence Insurance Name Policy Number Policy Hagan Covered Member ID Hagan Member ID Guarantor Name 01/27/2025 1 [employer] BETTER HEALTH OF [facility] ON OR AFTER 08/07/2020 (MEDICAID REPLACEMENT - HMO) Jewels Langley [id number] Jewels Langley Notes Date Note Type Note [...] or sleep deprivation. Viviana Lomas MD [address], [address], [facility] 04/12/2024 11:57:27 01/25/2025 text/html The patient is a 59 -year-old right-handed female who presents today for management of her seizures. She used to see Dr. Lomas, but is switching care. She states that her first seizure happened about 12 years ago. I reviewed clinic notes from Dr. Lomas who mentions that the seizures started in 2021. The first time she had a seizure, she was in the kitchen cooking. She states that she started punching herself in the face. She had loss of consciousness and then had generalized shaking. This lasted a few minutes. She went to the emergency room and was started on medication although she does not recall which medication was started. She had a second seizure. She woke up in the morning and she had a laceration on her scalp and she was very bloody. This required karissa. She also felt very sore. A lot of her seizures happen during sleep. She is currently on Briviact 100 mg b.i.d. and oxcarbazepine 150 mg b.i.d. She has previously also been on levetiracetam, Zonegran, and topiramate. She had weight loss with the topiramate. Her last seizure was on September 05. She was sleeping. She again had a seizure lasting 8 minutes. She denies any bowel or bladder incontinence or tongue biting with her seizures. On September 05, she was taken to [facility]. Her medications were not changed. She states that she missed her Briviact for about 2 days prior to the onset of that seizure. SHe states that the pharmacy sometimes has difficulties getting the prescription on time. She was a twin born 2 months premature. She weighed 2.5 pounds and was in the hospital for 7 months. She states that she met her milestones normally. She did not require PT, OT, ST, or special education classes. She denies a history of meningitis, encephalitis, or head injury. She denies a history of febrile seizures. her twice brother had seizures in childhood but he no longer has seizures. She also complains of memory loss. She had a 61-minute EEG on December 06, 2021. It was normal. There were no potentially epileptiform activity present during the recording.ELIS Ware MD [address] [place] [address], [phone], [facility] 01/27/2025 00:04:51 OBGyn Episode No OBEpisode recorded.
--- OUTSIDE RECORDS SUMMARY | 2025-03-11 15:30 | XMS_ITS | Encounter Summary ---
Author Organization [facility] Address [address] [place] [address] Care Team Providers Care Tutoring Assistant Name Role Phone Demarcus Li MD Primary Care Provider [phone] Daniel Bernard MD Unavailable Mamie Dey APRN ENVIRONMENTAL MARKETING REPRESENTATIVE-C Unavailable Ashley Price MD Unavailable Encounter Details Date Type Department Care Team (Late Contact Info) Description 03/13/2020 Abstract [facility] [address] [place] [address] Daniel Bernard MD [address] [place] [address] Social History Tobacco Use Types Packs/Day Years [...] 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
--- OUTSIDE RECORDS SUMMARY | 2025-03-11 15:30 | XMS_ITS | Clinical Summary ---
Author Organization [facility] Address [facility] [place] [address] Care Team Providers Care Evs Attendant Name Role Phone Demarcus Li MD Primary Care Provider [phone] Ashley Price MD Unavailable Allergies Active Allergy [...] Essential hypertension 06/15/2020 Mixed hyperlipidemia 06/15/2020 Seizures ([facility]) 06/15/2020 Tobacco abuse 06/15/2020 Family History Medical History Relation Comments Diabetes Brother CVA Father Cancer Father Hypertension Father [place] Father Relation Status Comments Brother Father Social [...] 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 on file Not on file Last Filed Vital Signs Vital Sign Reading Time Taken Comments Blood Pressure 105/64 05/17/2024 8:16 AM CDT Pulse 88 05/17/2024 8:16 AM CDT Temperature 35.2 C (95.4 F) 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 Respiratory Rate 16 05/17/2024 8:16 AM CDT Oxygen Saturation 100% 05/17/2024 8:16 AM CDT Inhaled Oxygen Concentration - - Weight 54.4 kg (120 lb) 05/17/2024 8:16 AM CDT Height 172.7 cm (5' 8) 05/17/2024 8:16 AM CDT Body Mass Index 18.25 05/17/2024 8:16 AM CDT Plan of Treatment Upcoming Encounters Date Type Department Care Team (Late st Contact Info) Description 05/09/2025 9:00 AM CDT Appointment [facility] [address] [place] [address] Ashley Price MD [address] [place] [address] 05/24/2025 10:00 AM CDT Office Visit [facility] [facility] [address] [place] [phone] Ashley Price MD [address] [place] [address] Health Maintenance Due Date Last Done Comments Colorectal Cancer Screening Colonoscopy (10 Years) 1966 Annual Physical 1969 Hepatitis C 1984 DTaP, Tdap and Td Vaccines ( 1 - Tdap) 1985 Hepatitis B Vaccines (1 of 3 - 19+ 3-dose series) 1985 Pneumococcal Vaccine: 50+ Years (1 of 2 - PCV) 1985 Mammogram Screening 2006 Zoster Vaccines (1 of 2) 2016 ASCVD LDL 01/28/2024 01/27/2023, 07/28/2022, 10/08/2020 COVID-19 Vaccine (1 - 2023-2 5 season) 2024 Meningococcal B Vaccine Aged Out No [...] Epilepsy, unspecified, not intractable, without status epilepticus Cerebral infarction, unspecified from Last 3 Months or Most Recently Relevant to Health Maintenance Results * (ABNORMAL) LIPID PANEL (01/27/2023 11:55 AM CDT) CHOLESTEROL 281(H) <200 MG/DL 01/27/2023 2:27 PM CDT [facility] Comment: THE NATIONAL LIPID ASSOCIATION AND THE NATIONAL CHOLESTEROL EDUCATION PROGRAM (NCEP) HAVE SET THE FOLLOWING GUIDELINES FOR TOTAL CHOLESTEROL IN ADULTS AGES 18 AND UP. DESIRABLE: <200 BORDERLINE HIGH: 200-239 HIGH: > OR = 240 TRIGLYCERIDES 370(H) <150 MG/DL 01/27/2023 2:27 PM CDT [facility] Comment: THE NATIONAL LIPID ASSOCIATION AND THE NATIONAL CHOLESTEROL EDUCATION PROGAM (NCEP) HAVE SET THE FOLLOWING GUIDELINES FOR TRIGLYCERIDES IN ADULTS AGES 18 AND UP. NORMAL: <150 BORDERLINE HIGH: 150 TO 199 HIGH: 200 TO 499 VERY HIGH: >499 HDL 55 >49 MG/DL 01/27/2023 2:27 PM CDT [facility] Comment: THE NATIONAL LIPID ASSOCIATION AND THE NATIONAL CHOLESTEROL EDUCATION PROGAM (NCEP) HAVE SET THE FOLLOWING GUIDELINES FOR HDL CHOLESTEROL IN ADULTS AGES 18 AND UP. MALES: >39 FEMALES: >49 LDL-C 152(H) <100 MG/DL 01/27/2023 2:27 PM CDT [facility] Comment: THE NATIONAL LIPID ASSOCIATION AND THE NATIONAL CHOLESTEROL EDUCATION PROGAM (NCEP) HAVE SET THE FOLLOWING GUIDELINES FOR LDL CHOLESTEROL IN ADULTS AGES 18 AND UP. DESIRABLE: <100 ABOVE DESIRABLE: 100 TO 129 BORDERLINE HIGH: 130 TO 159 HIGH: 160 TO 189 VERY HIGH: >189 VLDL CALCULATION 74 MG/DL 01/28/20 2:27 PM CDT [facility] Comment:REFERENCE RANGE NOT ESTABLISHED CHOL/HDL RATIO 5.1 01/27/2023 2:27 PM CDT [facility] Comment:REFERENCE RANGE NOT ESTABLISHED LDL/HDL 2.8 01/27/2023 2:27 PM CDT [facility] Comment:REFERENCE RANGE NOT ESTABLISHED NON HDL CHOLESTEROL 226 MG/DL 01/27/2023 2:27 PM CDT [facility] Comment:REFERENCE RANGE NOT ESTABLISHED 01/27/2023 11:5 5 AM CDT Taco Lemus NP LABORATORY Final Result [facility] [address] [place] [address], from Last 3 Months or Most Recently Relevant to Health Maintenance Insurance [facility] Advance Directives * Full Code (Latest Code Status on File) Date Activated Date Inactivated Comments 10/08/2020 12:26 PM 10/08/2020 4:04 PM Care Teams Evs Attendant Relationship Specialty Start Date End Date Demarcus Li MD [address] [place] [address] PCP - General FAMILY PRACTICE 02/20/20 Ashley Price MD [address] [place] [address] Consulting Physician CARDIOVASCULAR DISEASE 01/01/24
--- NOTE | 2025-03-11 16:12 | ED_ITS ---
HPI - Extremity Injury (Lower) General Chief Complaint: Extremity Injury, Lower Stated Complaint: left foot pain Time Seen by Provider: 03/11/25 16:12 Source: patient Mode of arrival: ambulatory Limitations: no limitations History of Present Illness HPI Narrative: 60-year-old female with a history of smoking alcohol use, seizure disorder, TIA, hypertension, CAD/KS presents to the ED after she twisted her left ankle yesterday. She presents with -- pain and swelling of the left lateral foot. No other injuries noted. No recent seizures. MD complaint: foot injury Onset (ago): day(s) ( Yesterday) Injury: Left: foot Type of Injury: inversion Place: street/outdoors Severity: severe Relieving factors: immobilization Exacerbating factors: movement Context: fall Other symptoms: none Treatments prior to arrival: cold therapy Related Data Home Medications ?Medication ?Instructions ?Recorded ?Confirmed ?Last Taken ?Type irbesartan 300 1 tablet PO DAILY 03/29/20 09/05/24 03/29/20 History mg-hydrochlorothiazide 12.5 mg tablet metoprolol succinate 25 mg 50 mg PO DAILY 03/19/21 09/05/24 Unknown History tablet,extended release 24 hr pravastatin 20 mg tablet 20 mg PO DAILY 03/19/21 09/05/24 Unknown History oxcarbazepine 150 mg tablet 150 mg PO DAILY 09/05/24 09/05/24 Unknown History Allergies Allergy/AdvReac Type Severity Reaction Status Date / Time hydrocodone Allergy Severe Unknown Verified 03/11/25 15:29 Penicillins Allergy Severe Nausea and Verified 03/11/25 15:29 Vomiting CODEINE (Generic Allergy) Allergy Severe Y Uncoded 03/11/25 15:29 1. CODIENE 2.PCN 3. BITH Allergy Unknown Nausea and Uncoded 03/11/25 15:29 CONTROLL PILLS Vomiting NKFA Allergy Unknown Unknown Uncoded 03/11/25 15:29 CONTRCEPTIVES Allergy Hives Uncoded 03/11/25 15:29 Review of Systems Review of Systems: All systems reviewed & are unremarkable except as noted in HPI and below PMFSH Past Medical History Medical History Seizures History of TIA (transient ischemic attack) Hypertension History of KS (myocardial infarction) Surgical History Surgical History History of H/O: hysterectomy Family History Family History Mother Lung cancer, primary, with metastasis from lung to other site Father Breast cancer metastasized to brain Sibling DM2 (diabetes mellitus, type 2) Social History Social History Smoking packs per day: 1 Smoking cigarettes per day: 20.0 Years smoked: 39 Smoking pack-years: 39.00 Smoking status: Current every day smoker Tobacco type: cigarettes Second hand tobacco smoke exposure: Yes Alcohol intake: current Drinks per week: 2 Substance use: never Living arrangements: with family Gender identity (if verbalized by the patient): Female Spiritual care concerns: No Exam Narrative: blood pressure 142/97 with a heart rate of 114. Temperature 36.2?. Oxygen saturation of 100% on room air. Const: General: no acute distress Orientation/consciousness: patient oriented x3 Limitations: no limitations HENMT: Head: normal to inspection Ears: external ears normal Face/Nose/Sinus: Normal external nose present Mouth: Yes Normal oral and palatal mucosa present Throat: posterior oropharynx normal Eyes: Conjunctivae: conjunctivae normal Pupils: Equal, round and reactive pupils present EOM: EOMs intact bilaterally Neck: Neck: normal visual inspection, no lymphadenopathy and no meningeal signs Chest: Chest palpation & inspection: normal inspection of the chest Resp: Effort & Inspection: normal respiratory effort Auscultation: clear to auscultation bilaterally Cardio: Rate: regular rate Rhythm: regular rhythm GI: GI Palp: Yes Soft to palpation Auscultation: normal bowel sounds Other: No tenderness/rigidity / rebound. : General: Yes no CVA tenderness Back/Spine/Pelvis: Back: no CVA tenderness Skin: General skin exam: normal color Rashes: no rashes Neuro: General: patient oriented x3, moves all extremities, no meningeal signs, no focal motor deficits and CN's II-XI intact bilaterally Cranial nerves: Yes Nystagmus not present Speech: normal speech Extrem: General: normal to inspection Other: Swelling over left lateral foot with tenderness. Le-ft ankle no tenderness. Normal range of motion. Psych: Mental Status: mental status grossly normal Affect: normal affect Attitude: cooperative Course Course Emergency Course: Left foot pain- X-ray revealed mildly displaced angulated and comminuted fracture of the distal 5th metatarsal-- Posterior splint and nonweightbearing posterior splint placed by me. Distal neurovascular bundle is intact. Advised the patient to monitor the distal circulation. Patient is allergic to oxycodone. Advised to take Motrin / Tylenol. Vital Signs Vital signs: Vital Signs Temperature 36.2 C L 03/11/25 15:28 Pulse Rate 114 H 03/11/25 15:28 Respiratory Rate 16 03/11/25 15:28 Blood Pressure 142/97 H 03/11/25 15:28 Pulse Oximetry 100 03/11/25 15:28 Oxygen Delivery Room Air 03/11/25 15:28 Temperature 36.2 C L 03/11/25 15:28 Pulse Rate 114 H 03/11/25 15:28 Respiratory Rate 16 03/11/25 15:28 Blood Pressure 142/97 H 03/11/25 15:28 Pulse Oximetry 100 03/11/25 15:28 Oxygen Delivery Room Air 03/11/25 15:28 MDM - Extremity Injury (Lower) MDM Narrative Medical decision making narrative: left 5th metatarsal fracture which is mildly displaced angulated and comminuted fracture Differential Diagnosis Differential diagnosis: Likely ankle sprain and strain and fracture of toe Lab Data Attestation: I reviewed the patient's lab results. Discharge Plan Discharge Clinical Impression: Closed nondisplaced fracture of fifth left metatarsal bone Qualifiers: Encounter type: initial encounter Qualified Code(s): S92.355A - Nondisplaced fracture of fifth metatarsal bone, left foot, initial encounter for closed fr acture Patient Disposition: Home Condition: Stable Instructions: Antibiotic Form, Foot Fracture in Adults (ED) Additional Instructions: follow-up with ortho specialist Patient Language: Surinamese Prescriptions: New (DME) crutches See Rx Instructions .Route .MEDSUPPLY Qty: 1 0RF Rx Instructions: As directed No Action pravastatin 20 mg tablet 20 mg PO DAILY metoprolol succinate 25 mg tablet extended release 24 hr 50 mg PO DAILY irbesartan-hydrochlorothiazide 300-12.5 mg tablet 1 tablet PO DAILY Briviact 75 mg tablet 75 mg PO BID Qty: 120 0RF Briviact 75 mg tablet 75 mg PO BID Qty: 60 0RF oxcarbazepine 150 mg tablet 150 mg PO DAILY Follow-up/Referrals: Demarcus Li MD [Primary Care Provider] - Time of Disposition: 17:06
[2025-03-11] MEDS: ONDANSETRON HCL ODT 4 MG TABLET PO (16:26)
[2025-03-11] MEDS: HYDROmorphone HCL INJ (*CRX) 2 MG/ML VIAL 0.5 MG IM (16:27)
[2025-03-11 16:30] VITALS: BP 140/97; PULSE 101; RESP 16; O2SAT 98
--- OUTSIDE RECORDS SUMMARY | 2025-03-11 16:42 | XMS_ITS | Encounter Summary ---
Author Organization [facility] Address [address] [place] [address] Care Team Providers Care Outside Installer Apprentice Name Role Phone Demarcus Li MD Primary Care Provider [phone] Daniel Bernard MD Unavailable [phone] Mamie Dey APRN ADMINISTRATIVE ASSISTANT-C Unavailable Ashley Price MD Unavailable Encounter Details Date Type Department Care Team (Late Contact Info) Description 03/13/2020 [facility] [address] [place] [address] Daniel Bernard MD [address] [place] [address] Social History Tobacco Use Types [...] 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
--- OUTSIDE RECORDS SUMMARY | 2025-03-11 16:42 | XMS_ITS | Clinical Summary ---
Author Organization [facility] Address [facility] [place] [address] Care Team Providers Care Wedger And Gluer Name Role Phone Demarcus Li MD Primary Care Provider Ashley Price MD Unavailable Allergies Active Allergy [...] Essential hypertension 06/15/2020 Mixed hyperlipidemia 06/15/2020 Seizures ([facility]) 06/15/2020 Tobacco abuse 06/15/2020 Family History Medical History Relation Comments Diabetes Brother CVA Father Cancer Father Hypertension Father AL Father Relation Status Comments Brother Father Social [...] 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 Not on file Not on file Last Filed Vital Signs Vital Sign Reading Time Taken Comments Blood Pressure 105/64 05/17/2024 8:16 AM CDT Pulse 88 05/17/2024 8:16 AM CDT Temperature 35.2 C (95.4 F) 10/08/2020 8:54 AM GIG TENDER Respiratory Rate 16 05/17/2024 8:16 AM CDT [...] Info) Description 05/09/2025 9:00 AM CDT Appointment [facility] [address] [place] [address] Ashley Price MD [address] [place] [address] 05/24/2025 10:00 AM CDT Office Visit [facility] [address] [place] [phone] Ashley Price MD [address] [place] [address] Health Maintenance Due Date Last Done Comments [...] 281(H) <200 MG/DL 01/27/2023 2:27 PM CDT [facility] Comment: THE NATIONAL LIPID ASSOCIATION AND THE NATIONAL CHOLESTEROL EDUCATION PROGRAM (NCEP) HAVE SET THE FOLLOWING GUIDELINES FOR TOTAL CHOLESTEROL IN ADULTS AGES 18 AND UP. DESIRABLE: <200 BORDERLINE HIGH: 200-239 HIGH: > OR = 240 TRIGLYCERIDES 370(H) <150 MG/DL 01/27/2023 2:27 PM CDT [facility] Comment: THE NATIONAL LIPID ASSOCIATION AND THE NATIONAL CHOLESTEROL EDUCATION PROGAM (NCEP) HAVE SET THE FOLLOWING GUIDELINES FOR TRIGLYCERIDES IN ADULTS AGES 18 AND UP. NORMAL: <150 BORDERLINE HIGH: 150 TO 199 HIGH: 200 TO 499 VERY HIGH: >499 HDL 55 >49 MG/DL 01/27/2023 2:27 PM CDT [facility] Comment: THE NATIONAL LIPID ASSOCIATION AND THE NATIONAL CHOLESTEROL EDUCATION PROGAM (NCEP) HAVE SET THE FOLLOWING GUIDELINES FOR HDL CHOLESTEROL IN ADULTS AGES 18 AND UP. MALES: >39 FEMALES: >49 LDL-C 152(H) <100 MG/DL 01/27/2023 2:27 PM CDT [facility] Comment: THE NATIONAL LIPID ASSOCIATION AND THE NATIONAL CHOLESTEROL EDUCATION PROGAM (NCEP) HAVE SET THE FOLLOWING GUIDELINES FOR LDL CHOLESTEROL IN ADULTS AGES 18 AND UP. DESIRABLE: <100 ABOVE DESIRABLE: 100 TO 129 BORDERLINE HIGH: 130 TO 159 HIGH: 160 TO 189 VERY HIGH: >189 VLDL CALCULATION 74 MG/DL 01/28/20 2:27 PM CDT [facility] Comment:REFERENCE RANGE NOT ESTABLISHED CHOL/HDL RATIO 5.1 01/27/2023 2:27 PM CDT [facility] Comment:REFERENCE RANGE NOT ESTABLISHED LDL/HDL 2.8 01/27/2023 2:27 PM CDT [facility] Comment:REFERENCE RANGE NOT ESTABLISHED NON HDL CHOLESTEROL 226 MG/DL 01/27/2023 2:27 PM CDT [facility] Comment:REFERENCE RANGE NOT ESTABLISHED 01/27/2023 11:5 5 AM CDT Taco Lemus NP LABORATORY Final Result [facility] [address] [place] [address], from Last 3 Months or Most Recently Relevant to Health Maintenance Insurance [facility] Advance Directives * Full Code (Latest Code Status on File) Date Activated Date Inactivated Comments 10/08/2020 12:26 PM 10/08/2020 4:04 PM Care Teams Wedger And Gluer Relationship Specialty Start Date End Date Demarcus Li MD [address] [place] [address] PCP - General FAMILY PRACTICE 02/20/20 Ashley Price MD [address] [place] [address] Consulting Physician CARDIOVASCULAR DISEASE 01/01/24
[2025-03-11 17:00] VITALS: BP 144/94; PULSE 98; RESP 17; O2SAT 99
[2025-03-11 17:20] VITALS: BP 153/92; PULSE 102; RESP 17; TEMP 36.4; O2SAT 99
== END 2025-03-11 17:20 | disposition home or self-care (01) ==
PROVIDERS: Emergency Provider Internal Medicine Critical Care Medicine; PCP Family Medicine
DX: S92.355A Nondisplaced fracture of fifth metatarsal bone, left foot, initial encounter for closed fracture (principal); I10 Essential (primary) hypertension; Z86.73 Personal history of transient ischemic attack (TIA), and cerebral infarction without residual deficits; I25.10 Atherosclerotic heart disease of native coronary artery without angina pectoris; I25.2 Old myocardial infarction; F17.210 Nicotine dependence, cigarettes, uncomplicated; X50.0XXA Overexertion from strenuous movement or load, initial encounter
CPT/HCPCS: 29515; 73610; 73630; 96372; 99284; A9270; J1171

== ENCOUNTER 2025-03-30 22:45 | Emergency (ER) | payer OTHER, SELFPAY ==
--- NOTE | ~2025-03-30 | XR_ITS ---
EXAMINATION: XR chest 1V portable DATE: 03/30/2025 23:06 INDICATION: Seizure TECHNIQUE: frontal view of the chest was obtained. COMPARISON: Chest radiograph dated 09/05/2024 FINDINGS: The lungs remain clear with no focal airspace opacities, pulmonary edema, pleural effusion or pneumot horax. The cardiomediastinal silhouette is normal. Visualized bones and soft tissues are unremarkable . IMPRESSION: 1. No acute cardiopulmonary disease. Reviewed, dictated and finalized at location A.
--- NOTE | ~2025-03-30 | CT_ITS ---
EXAMINATION: CT brain wo con DATE: 03/30/2025 23:07 INDICATION: Seizure TECHNIQUE: Computed tomography (CT) of the head was performed without intravenous contrast. Sagittal and coronal reconstructions were performed. The mA was adjusted according to patient size. Iterative reconstruction technique was employed. The dose-length product was 605.33 mGy-cm. COMPARISON: head CT dated 09/05/2024 FINDINGS: No acute intracranial hemorrhage, acute infarction or abnormal extra axial fluid collection. There is mild scattered white matter hypoattenuation consistent with chronic small vessel ischemic disease. Ventricles are normal and symmetric. No mass/mass effect. The orbits, paranasal sinuses and mastoid a ir cells are normal. IMPRESSION: 1. No acute intracranial process. 2. Mild scattered white matter hypoattenuation consistent with chronic small vessel ischemic disease. Reviewed, dictated and finalized at location A. IMPRESSION: 1. No acute intracranial process. 2. Mild scattered white matter hypoattenuation consistent with chronic small ve ssel ischemic disease.
[2025-03-30 22:45] VITALS: BP 139/89; PULSE 93; RESP 16; TEMP 36.8; O2SAT 98
--- OUTSIDE RECORDS SUMMARY | 2025-03-30 22:49 | XMS_ITS | Clinical Summary ---
Author Organization [facility] Address [facility] [place] [address] Care Team Providers Care Ballet Soloist Name Role Phone Demarcus Li MD Primary Care Provider [phone] Ashley Price MD Unavailable Allergies Active Allergy [...] Essential hypertension 06/15/2020 Mixed hyperlipidemia 06/15/2020 Seizures (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 Respiratory Rate 16 05/17/2024 8:16 AM CDT [...] Info) Description 05/09/2025 9:00 AM CDT Appointment [facility] [address] [place] [address] Ashley Price MD [address] [place] [address] 05/24/2025 10:00 AM CDT Office Visit [facility] [address] [place] [phone] Ashley Price MD [address] [place] [address] Health Maintenance Due Date Last Done Comments [...] 281(H) <200 MG/DL 01/27/2023 2:27 PM CDT [facility] Comment: THE NATIONAL LIPID ASSOCIATION AND THE NATIONAL CHOLESTEROL EDUCATION PROGRAM (NCEP) HAVE SET THE FOLLOWING GUIDELINES FOR TOTAL CHOLESTEROL IN ADULTS AGES 18 AND UP. DESIRABLE: <200 BORDERLINE HIGH: 200-239 HIGH: > OR = 240 TRIGLYCERIDES 370(H) <150 MG/DL 01/27/2023 2:27 PM CDT [facility] Comment: THE NATIONAL LIPID ASSOCIATION AND THE NATIONAL CHOLESTEROL EDUCATION PROGAM (NCEP) HAVE SET THE FOLLOWING GUIDELINES FOR TRIGLYCERIDES IN ADULTS AGES 18 AND UP. NORMAL: <150 BORDERLINE HIGH: 150 TO 199 HIGH: 200 TO 499 VERY HIGH: >499 HDL 55 >49 MG/DL 01/27/2023 2:27 PM CDT [facility] Comment: THE NATIONAL LIPID ASSOCIATION AND THE NATIONAL CHOLESTEROL EDUCATION PROGAM (NCEP) HAVE SET THE FOLLOWING GUIDELINES FOR HDL CHOLESTEROL IN ADULTS AGES 18 AND UP. MALES: >39 FEMALES: >49 LDL-C 152(H) <100 MG/DL 01/27/2023 2:27 PM CDT [facility] Comment: THE NATIONAL LIPID ASSOCIATION AND THE NATIONAL CHOLESTEROL EDUCATION PROGAM (NCEP) HAVE SET THE FOLLOWING GUIDELINES FOR LDL CHOLESTEROL IN ADULTS AGES 18 AND UP. DESIRABLE: <100 ABOVE DESIRABLE: 100 TO 129 BORDERLINE HIGH: 130 TO 159 HIGH: 160 TO 189 VERY HIGH: >189 VLDL CALCULATION 74 MG/DL 01/28/20 2:27 PM CDT [facility] Comment:REFERENCE RANGE NOT ESTABLISHED CHOL/HDL RATIO 5.1 01/27/2023 2:27 PM CDT [facility] Comment:REFERENCE RANGE NOT ESTABLISHED LDL/HDL 2.8 01/27/2023 2:27 PM CDT [facility] Comment:REFERENCE RANGE NOT ESTABLISHED NON HDL CHOLESTEROL 226 MG/DL 01/27/2023 2:27 PM CDT [facility] Comment:REFERENCE RANGE NOT ESTABLISHED 01/27/2023 11:5 5 AM CDT Taco Lemus NP LABORATORY Final Result [facility] [address] [place] [address], from Last 3 Months or Most Recently Relevant to Health Maintenance Insurance [facility] Advance Directives * Full Code (Latest Code Status on File) Date Activated Date Inactivated Comments 10/08/2020 12:26 PM 10/08/2020 4:04 PM Care Teams Ballet Soloist Relationship Specialty Start Date End Date Demarcus Li MD [address] [place] [address] PCP - General FAMILY PRACTICE 02/20/20 Ashley Price MD [address] [place] [address] Consulting Physician CARDIOVASCULAR DISEASE 01/01/24
--- OUTSIDE RECORDS SUMMARY | 2025-03-30 22:49 | XMS_ITS | Encounter Summary ---
Author Organization [facility] Address [address] [place] [address] Care Team Providers Care Dialysis Social Worker Name Role Phone Demarcus Li MD Primary Care Provider [phone] Daniel Bernard MD Unavailable [phone] Mamie Dey APRN LAWN SERVICE SUPERVISOR-C Unavailable Ashley Price MD Unavailable Encounter Details Date Type Department Care Team (Late Contact Info) Description 03/13/2020 [facility] [address] [place] [address] Daniel Bernard MD [address] [place] [address] Social History Tobacco Use Types [...] 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 [address] [place] [address] Ashley Price MD [address] [place] [address] 05/24/2025 10:00 AM CDT Office Visit [facility] [place] [phone] Ashley Price MD [address] [place] [address] documented as of this encounter Visit Diagnoses Not on filedocumented in this encounter Additional Health Concerns Infection Onset Date Last Indicated Resolved Time COVID-19 Rule Out 10/05/2020 10/05/2020 10/06/2020 2:57 PM REGULATORY LEADER documented as of this encounter Care Teams Dialysis Social Worker Relationship Specialty Start Date End Date Demarcus Li MD [address] [place] [address] PCP - General FAMILY PRACTICE 02/20/20 Daniel Bernard MD [address] [place] [phone] Consulting Physician CARDIOVASCULAR DISEASE 02/20/20 Mamie Dey APRN, LAWN SERVICE SUPERVISOR-C [address] [facility] [address] [place] [address] NURSE PRACTITIONER 03/20/21 12/31/23 Ashley Price MD [address] [place] [address] Consulting Physician CARDIOVASCULAR DISEASE 01/01/24 documented as of this encounter
--- NOTE | 2025-03-30 22:53 | ED_ITS ---
HPI - Seizure General Chief Complaint: Seizure Stated Complaint: seizures Time Seen by Provider: 03/30/25 22:52 Source: patient and family Mode of arrival: EMS Limitations: no limitations History of Present Illness HPI Narrative: Patient is a 60-year-old female with a seizure disorder here with an atypical seizure of staring off into space this evening for about 5 minutes and proceeded to do it again another time. Normal she has tonic clonic movement and hurts afterwards. She does not remember the event this evening. She was standing the entire event but nonresponsive. No chest pain or shortness of breath. No nausea vomiting or diarrhea. She has recently been added new seizure medication for breakthrough seizures. She has a neurologist. she smokes marijuana daily and has been drinking hard alcohol this evening. 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 (CDL) as part of your employment, either self-employed or otherwise?: No Related Data Home Medications ?Medication ?Instructions ?Recorded ?Confirmed ?Last Taken ?Type irbesartan 300 1 tablet PO DAILY 03/29/20 09/05/24 03/29/20 History mg-hydrochlorothiazide 12.5 mg tablet metoprolol succinate 25 mg 50 mg PO DAILY 03/19/21 09/05/24 Unknown History tablet,extended release 24 hr pravastatin 20 mg tablet 20 mg PO DAILY 03/19/21 09/05/24 Unknown History oxcarbazepine 150 mg tablet 150 mg PO DAILY 09/05/24 09/05/24 Unknown History Allergies Allergy/AdvReac Type Severity Reaction Status Date / Time hydrocodone Allergy Severe Unknown Verified 03/31/25 00:32 Penicillins Allergy Severe Nausea and Verified 03/31/25 00:32 Vomiting CODEINE (Generic Allergy) Allergy Severe Y Uncoded 03/31/25 00:32 1. CODIENE 2.PCN 3. BITH Allergy Unknown Nausea and Uncoded 03/31/25 00:32 CONTROLL PILLS Vomiting NKFA Allergy Unknown Unknown Uncoded 03/31/25 00:32 CONTRCEPTIVES Allergy Hives Uncoded 03/31/25 00:32 Review of Systems 2 Review of Systems: All systems reviewed & are unremarkable except as noted in HPI and below Constitutional: Constitutional: Reports no additional constitutional complaints Eyes: Eyes: Reports no additional eye complaints ENT: Reports system reviewed and no additional complaints, except as documented Cardiovascular: Cardiovascular: Reports no additional cardiovascular complaints Respiratory: Respiratory: Reports no additional respiratory complaints Gastrointestinal: Gastrointestinal: Reports no additional gastrointestinal complaints Genitourinary: Genitourinary: Reports no additional female genitourinary complaints Musculoskeletal: Musculoskeletal: Reports no additional musculoskeletal complaints Integumentary/Breasts: Skin/Breast: Reports system reviewed and no additional complaints, except as docu Neurologic: Reports system reviewed and no additional complaints, except as documented Psychiatric: Psychiatric: Reports no additional psychiatric complaints Endocrine: Endocrine: Reports no additional endocrine complaints Hematologic/Lymphatic: Hematologic/Lymphatic: Reports no additional hematologic/lymphatic complaints Allergic/Immunologic: Allergic/Immunologic: Reports no additional allergic/immunologic complaints PMFSH Past Medical History Medical History Seizures History of TIA (transient ischemic attack) Hypertension History of MA (myocardial infarction) Surgical History Surgical History History of H/O: hysterectomy Family History Family History Mother Lung cancer, primary, with metastasis from lung to other site Father Breast cancer metastasized to brain Sibling DM2 (diabetes mellitus, type 2) Social History Social History Smoking packs per day: 1 Smoking cigarettes per day: 20.0 Years smoked: 39 Smoking pack-years: 39.00 Smoking status: Current every day smoker Tobacco type: cigarettes Second hand tobacco smoke exposure: Yes Alcohol intake: current Drinks per week: 2 Substance use: never Living arrangements: with family Gender identity (if verbalized by the patient): Female Spiritual care concerns: No Exam 2 Const: General: healthy appearing Nutritional Appearance: well nourished Orientation/consciousness: patient oriented x3 Limitations: no limitations HENMT: Head: normal to inspection Ears: external ears normal F jatinder/Nose/Sinus: Normal external nose present Eyes: Conjunctivae: conjunctivae normal Pupils: Equal, round and reactive pupils present EOM: EOMs intact bilaterally Neck: Neck: normal visual inspection Chest: Chest palpation & inspection: normal inspection of the chest Resp: Effort & Inspection: normal respiratory effort and not labored A uscultation: clear to auscultation bilaterally and no crackles Cardio: Rate: regular rate Rhythm: regular rhythm Heart sounds: no murmurs GI: Inspection: non-distended GI Palp: Yes Soft to palpation and No Tenderness to palpation present (GI) Auscultation: normal bowel sounds : General: Yes bladder normal to palpation Back/Spine/Pelvis: Back: no CVA tenderness Skin: General skin exam: normal color Rashes: no rashes Wounds: no wounds Neuro: General: patient oriented x3, moves all extremities, no meningeal signs, no focal motor deficits and CN's II-XI intact bilaterally Cranial nerves: Yes Nystagmus not present Speech: normal speech Gait exam (Neuro): Normal gait present Other: fast exam negative, NIH score is 0, GCS is 15 Extrem: General: normal to inspection Psych: Appearance: grossly normal Mental Status: mental status grossly normal Affect: normal affect Attitude: cooperative Course Vital Signs Vital signs: Vital Signs Temperature 36.8 C 03/30/25 22:45 Pulse Rate 93 03/30/25 22:45 Respiratory Rate 16 03/30/25 22:45 Blood Pressure 139/89 03/30/25 22:45 Pulse Oximetry 98 03/30/25 22:45 Oxygen Delivery Room Air 03/30/25 22:45 Temperature 36.8 C 03/30/25 22:45 Pulse Rate 93 03/30/25 22:45 Respiratory Rate 16 03/30/25 22:45 Blood Pressure 139/89 03/30/25 22:45 Pulse Oximetry 98 03/30/25 22:45 Oxygen Delivery Room Air 03/30/25 22:45 MDM - Seizure MDM Narrative Medical decision making narrative: patient is a 60-year-old female with a seizure disorder known and having breakthrough atypical seizure activity this evening. We will do a neurological workup at this time. Lab Data Attestation: I reviewed the patient's lab results. 03/30/25 23:21 03/30/25 23:21 Labs: Lab Results 03/30/25 03/31/25 Range/Units 23:21 00:03 WBC 9.6 (4.8-10.8) K/mm3 RBC 4.04 L (4.20-5.40) M/mm3 Hgb 13.3 (12.0-15.0) g/dL Hct 40.7 (35.0-49.0) % MCV 100.7 (78.0-102.0) fL MCH 32.9 H (27.0-31.0) pg MCHC 32.7 (32-36) g/dL RDW 13.5 (11.6-14.4) % Plt Count 250 (150-420) K/mm3 MPV 9.8 (9.2-11.8) fl Immature Gran % (Auto) 0.4 H (0.0-0.0) % Neut % (Auto) 53.3 (50.0-70.0) % Lymph % (Auto) 32.3 (18.0-42.0) % Robertson % (Auto) 8.9 (2.0-11.0) % Eos % (Auto) 4.2 (1.0-6.0) % Baso % (Auto) 0.9 (0.0-1.0) % Lymph # (Auto) 3.10 (1.10-4.50) K/mm3 Robertson # (Auto) 0.85 (0.10-0.90) K/mm3 Eos # (Auto) 0.40 (0.02-0.50) K/mm3 Baso # (Auto) 0.09 (0.00-0.10) K/mm3 Abs Immat Gran (auto) 0.04 H (0.00-0.00) K/mm3 Absolute Neuts (auto) 5.11 (1.70-7.20) K/mm3 Absolute Nucleated RBC 0.00 (0.00-0.00) K/mm3 Nucleated RBC % 0.0 (0-0.0) % Sodium 140 (137-145) mmol/L Potassium 3.6 (3.4-5.0) mmol/L Chloride 107 (98-107) mmol/L Carbon Dioxide 23 (22-30) mmol/L Anion Gap 10 (4-12) mmol/L BUN 19 H (7-17) mg/dL Creatinine 0.83 (0.7-1.0) mg/dL Estim Creat Clear Calc 56 ml/min Estimated GFR > 60 (59 - ) Glucose 102 (65-110) mg/dL Calculated Osmolality 292 (285-295) mOsm/kg Calcium 8.8 (8.4-10.2) mg/dL Total Bilirubin 0.5 (0.2-1.3) mg/dL AST 41 H (14-36) U/L ALT 37 H (6-35) U/L Alkaline Phosphatase 108 (38-126) U/L Total Creatine Kinase 49 (30-135) U/L Troponin I < 0.012 (0.000-0.034) ng/mL Total Protein 7.1 (6.3-8.2) g/dL Albumin 4.1 (3.5-5.1) g/dL Urine Color Light yellow (Yellow) Urine Appearance Clear (Clear) Urine pH 6.0 (5.0-8.0) Ur Specific [place] <= 1.005 L (1.010-1.020) Urine Protein Negative (Negative) Urine Glucose (UA) Negative (Negative) Urine Ketones Negative (Negative) Ur Blood (Man) 1+ H (Negative) Urine Nitrate Negative (Negative) Urine Bilirubin Negative (Negative) Urine Urobilinogen 0.2 (0.2-1.0) mg/dL Leukocyte Esterase Rfl Negative (Negative) BRAD/UL Urine RBC 0-2 (0-2) /hpf Urine WBC 0-3 (0-3) /hpf Ur Squamous Epith Cells Few (Few) /hpf Urine Bacteria Trace (None) /hpf Urine Opiates Screen Negative (Negative) Urine Methadone Screen Negative (Negative) Ur Barbiturates Screen Negative (Negative) Ur Phencyclidine Scrn Negative (Negative) Ur Amphetamine Screen Negative (Negative) U Benzodiazepines Scrn Negative (Negative) Urine Cocaine Screen Negative (Negative) U Cannabinoids Screen Negative (Negative) Ethyl Alcohol 163 (<10) mg/dL Imaging Data Attestation: I personally reviewed and interpreted this imaging study as follows: Radiologist's impression: Chest x-ray is negative for acute process CT scan of the head is negative for acute process ECG Data EKG #1: Attestation: I personally reviewed and interpreted this ECG as follows: ECG completion date: 07/25/25 ECG completion time: 00:29 EKG Interpretation: normal rate, sinus rhythm, no ectopy, non-specific ST changes, normal QRS, normal QT and NL axis Discharge Plan Discharge Clinical Impression: Breakthrough seizure Epilepsy Qualifiers: Epilepsy type: unspecified Intractability: not intractable Status epilepticus: without status epilepticus Qualified Code(s): G40.909 - Epilepsy, unspecified, not intractable, without status epilepticus Patient Disposition: Home Condition: Stable Instructions: Epilepsy (ED) Additional Instructions: please follow-up with the neurologist in the next week. You may need further adjustments your medication. Patient Language: Guinean Prescriptions: No Action pravastatin 20 mg tablet 20 mg PO DAILY metoprolol succinate 25 mg tablet extended release 24 hr 50 mg PO DAILY irbesartan-hydrochlorothiazide 300-12.5 mg tablet 1 tablet PO DAILY Briviact 75 mg tablet 75 mg PO BID Qty: 120 0RF Briviact 75 mg tablet 75 mg PO BID Qty: 60 0RF oxcarbazepine 150 mg tablet 150 mg PO DAILY (DME) crutches See Rx Instructions .Route .MEDSUPPLY Qty: 1 0RF Rx Instructions: As directed Follow-up/Referrals: Demarcus Li MD [Primary Care Provider] - Time of Disposition: 00:42
--- NOTE | 2025-03-30 23:06 | ECG_ITS ---
Test Date: 2025-03-31 00:21:52 Measurements Intervals [place] Rate: 89 P: 58 DE: 229 QRS: 70 QRSD: 89 T: 61 QT: 379 QTc: 462 Interpretive Statements SINUS RHYTHM WITH FIRST DEGREE AV BLOCK Compared to ECG 09/06/2024 00:01:47 First degree AV block now present Electronically Signed On 04-01-2025 18:26:03 CDT by Jordan Cavazos M.D.
[2025-03-30 23:24] LABS: Hematocrit 40.7 % (35.0-49.0); Hemoglobin 13.3 g/dL (12.0-15.0); Immature Granulocyte Percent A 0.4 % (0.0-0.0); Lymphocytes Absolute Auto 3.10 K/mm3 (1.10-4.50); Mean Corpuscular HGB Conc 32.7 g/dL (32-36); Mean Corpuscular Hemoglobin 32.9 pg (27.0-31.0); Mean Corpuscular Volume 100.7 fL (78.0-102.0); Nucleated Red Blood Cells Absolute Auto 0.00 K/mm3 (0.00-0.00); Nucleated Red Blood Cells Perc 0.0 % (0-0.0); Platelet Count Result 250 K/mm3 (150-420); Red Blood Count 4.04 M/mm3 (4.20-5.40); White Blood Count 9.6 K/mm3 (4.8-10.8)
[2025-03-30] MEDS: SODIUM CHLORIDE 0.9% IV 1,000 ML 999 ML IV CONT (23:28)
[2025-03-30 23:50] LABS: Sodium 140 mmol/L (137-145)
[2025-03-30 23:51] LABS: Anion Gap 10 mmol/L (4-12); Aspartate Amino Transferase 41 U/L (14-36); Bilirubin,Total 0.5 mg/dL (0.2-1.3); Blood Urea Nitrogen 19 mg/dL (7-17); Calcium 8.8 mg/dL (8.4-10.2); Carbon Dioxide 23 mmol/L (22-30); Chloride 107 mmol/L (98-107); Estimated CRCL calculation 56 ml/min; Estimated Glomerular Filt Rate > 60; Glucose 102 mg/dL (65-110); Osmolality Calculated 292 mOsm/kg (285-295); Potassium 3.6 mmol/L (3.4-5.0)
[2025-03-30 23:52] LABS: Alanine Aminotransferase 37 U/L (6-35); Albumin Level 4.1 g/dL (3.5-5.1); Alkaline Phosphatase 108 U/L (38-126); Creatine Kinase 49 U/L (30-135); Total Protein 7.1 g/dL (6.3-8.2); Troponin I < 0.012 ng/mL (0.000-0.034)
--- OUTSIDE RECORDS SUMMARY | 2025-03-31 00:08 | XMS_ITS | Clinical Summary ---
Author Organization [facility] Address [facility] [place] [address] Care Team Providers Care Meat Slicer Name Role Phone Demarcus Li MD Primary Care Provider [phone] Ashley Price MD Unavailable Allergies Active Allergy [...] Essential hypertension 06/15/2020 Mixed hyperlipidemia 06/15/2020 Seizures (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 Respiratory Rate 16 05/17/2024 8:16 AM CDT [...] Info) Description 05/09/2025 9:00 AM CDT Appointment [facility] [address] [place] [address] Ashley Price MD [address] [place] [address] 05/24/2025 10:00 AM CDT Office Visit [facility] [address] [place] [phone] Ashley Price MD [address] [place] [address] Health Maintenance Due Date Last Done Comments [...] 281(H) <200 MG/DL 01/27/2023 2:27 PM CDT [facility] Comment: THE NATIONAL LIPID ASSOCIATION AND THE NATIONAL CHOLESTEROL EDUCATION PROGRAM (NCEP) HAVE SET THE FOLLOWING GUIDELINES FOR TOTAL CHOLESTEROL IN ADULTS AGES 18 AND UP. DESIRABLE: <200 BORDERLINE HIGH: 200-239 HIGH: > OR = 240 TRIGLYCERIDES 370(H) <150 MG/DL 01/27/2023 2:27 PM CDT [facility] Comment: THE NATIONAL LIPID ASSOCIATION AND THE NATIONAL CHOLESTEROL EDUCATION PROGAM (NCEP) HAVE SET THE FOLLOWING GUIDELINES FOR TRIGLYCERIDES IN ADULTS AGES 18 AND UP. NORMAL: <150 BORDERLINE HIGH: 150 TO 199 HIGH: 200 TO 499 VERY HIGH: >499 HDL 55 >49 MG/DL 01/27/2023 2:27 PM CDT [facility] Comment: THE NATIONAL LIPID ASSOCIATION AND THE NATIONAL CHOLESTEROL EDUCATION PROGAM (NCEP) HAVE SET THE FOLLOWING GUIDELINES FOR HDL CHOLESTEROL IN ADULTS AGES 18 AND UP. MALES: >39 FEMALES: >49 LDL-C 152(H) <100 MG/DL 01/27/2023 2:27 PM CDT [facility] Comment: THE NATIONAL LIPID ASSOCIATION AND THE NATIONAL CHOLESTEROL EDUCATION PROGAM (NCEP) HAVE SET THE FOLLOWING GUIDELINES FOR LDL CHOLESTEROL IN ADULTS AGES 18 AND UP. DESIRABLE: <100 ABOVE DESIRABLE: 100 TO 129 BORDERLINE HIGH: 130 TO 159 HIGH: 160 TO 189 VERY HIGH: >189 VLDL CALCULATION 74 MG/DL 01/28/20 2:27 PM CDT [facility] Comment:REFERENCE RANGE NOT ESTABLISHED CHOL/HDL RATIO 5.1 01/27/2023 2:27 PM CDT [facility] Comment:REFERENCE RANGE NOT ESTABLISHED LDL/HDL 2.8 01/27/2023 2:27 PM CDT [facility] Comment:REFERENCE RANGE NOT ESTABLISHED NON HDL CHOLESTEROL 226 MG/DL 01/27/2023 2:27 PM CDT [facility] Comment:REFERENCE RANGE NOT ESTABLISHED 01/27/2023 11:5 5 AM CDT Taco Lemus NP LABORATORY Final Result [facility] [address] [place] [address], from Last 3 Months or Most Recently Relevant to Health Maintenance Insurance [facility] Advance Directives * Full Code (Latest Code Status on File) Date Activated Date Inactivated Comments 10/08/2020 12:26 PM 10/08/2020 4:04 PM Care Teams Meat Slicer Relationship Specialty Start Date End Date Demarcus Li MD [address] [place] [address] PCP - General FAMILY PRACTICE 02/20/20 Ashley Price MD [address] [place] [address] Consulting Physician CARDIOVASCULAR DISEASE 01/01/24
--- OUTSIDE RECORDS SUMMARY | 2025-03-31 00:08 | XMS_ITS | Encounter Summary ---
Author Organization [facility] Address [address] [place] [address] Care Team Providers Care Morning Show Newscast Producer Name Role Phone Demarcus Li MD Primary Care Provider [phone] Daniel Bernard MD Unavailable Mamie Dey APRN CUT OFF OPERATOR SCORER-C Unavailable Ashley Price MD Unavailable Encounter Details Date Type Department Care Team (Late Contact Info) Description 03/13/2020 [facility] [address] [place] [address] Daniel Bernard MD [address] [place] [address] Social History Tobacco Use Types [...] 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 [address] [place] [address] Ashley Price MD [address] [place] [address] 05/24/2025 10:00 AM CDT Office Visit [facility] [place] [phone] Ashley Price MD [address] [place] [address] documented as of this encounter Visit Diagnoses Not on filedocumented in this encounter Additional Health Concerns Infection Onset Date Last Indicated Resolved Time COVID-19 Rule Out 10/05/2020 10/05/2020 10/06/2020 2:57 PM RIG HAND documented as of this encounter Care Teams Morning Show Newscast Producer Relationship Specialty Start Date End Date Demarcus Li MD [address] [place] [address] PCP - General FAMILY PRACTICE 02/20/20 Daniel Bernard MD [address] [place] [phone] Consulting Physician CARDIOVASCULAR DISEASE 02/20/20 Mamie Dey APRN, CUT OFF OPERATOR SCORER-C [address] [facility] [address] [place] [address] NURSE PRACTITIONER 03/20/21 12/31/23 Ashley Price MD [address] [place] [address] Consulting Physician CARDIOVASCULAR DISEASE 01/01/24 documented as of this encounter
[2025-03-31 00:12] LABS: Add Urine Microscopic? YES; Appearance Urine Clear (Clear); Glucose Urine UA Negative (Negative); Leukocyte Esterase Ur Negative LEU/UL (Negative); Nitrate Urine Negative (Negative); Specific Grav Ur <= 1.005 (1.010-1.020)
[2025-03-31 00:30] LABS: Cannabinoid Screen Urine Negative (Negative)
[2025-03-31 01:00] VITALS: BP 134/68; PULSE 72; RESP 18; O2SAT 99
== END 2025-03-31 01:00 | disposition home or self-care (01) ==
PROVIDERS: Emergency Provider Emergency Medicine; PCP Family Medicine
DX: G40.909 Epilepsy, unspecified, not intractable, without status epilepticus (principal); F12.90 Cannabis use, unspecified, uncomplicated; F17.210 Nicotine dependence, cigarettes, uncomplicated
CPT/HCPCS: 36415; 70450; 71045; 80053; 80307; 81001; 82077; 82550; 84484; 85025; 93005; 96360; 99284; J7030